=== PATIENT | male | born 1950 | race Caucasian/White ===

== ENCOUNTER 2016-07-24 11:36 | Emergency (ER) | payer MEDICARE, OTHER ==
--- NOTE | 2016-07-24 12:48 | ED Physician Documentation ---
PD HPI ABD PAIN - Stated complaint Stated Complaint: R SIDE PX - Chief complaint Chief Complaint: Abd Pain - History obtained from History obtained from: Patient - History of Present Illness Timing - onset: How many weeks ago (3) Timing - duration: Weeks (3) Timing - details: Gradual onset, Waxing and waning ([place] and had expected post op pain and then doing better. However started having cramping pain the past week or so. No fevers. Had not been using pain meds after first few days. No signs of infection at wounds. Has been having intermittent severe upper abd cramping pain, more after eating, and improved with belching. Has had firm bowel movements. The frequency of the cramping pains has increased the past 2 days and is today occurring every 10-15 minutes. He feels full stomach. Pain is mainly RUQ area.) Quality: Cramping, Sharp, Pain Location: RUQ, Epigastric Radiation: No: Chest, Upper back Improved by: Position (better sitting up). No: BM Worsened by: Eating, Position (worse lying) Associated symptoms: Nausea, Constipation. No: Fever, Vomiting, Diarrhea, Dysuria, Chest pain Similar symptoms before: Has not had sx before Recently seen: Surgery [place] of state) Review of Systems Ten Systems: 10 systems reviewed and negative Constitutional: denies: Fever, Chills Nose: denies: Rhinorrhea / runny nose, Congestion Throat: denies: Sore throat Cardiac: denies: Chest pain / pressure, Palpitations Respiratory: denies: Dyspnea, Cough GI: reports: Abdominal Pain, Nausea, Constipation. denies: Abdominal Swelling, Vomiting, Diarrhea : denies: Dysuria, Frequency Neurologic: denies: Generalized weakness, Near syncope PD PAST MEDICAL HISTORY - Past Medical History Cardiovascular: None Respiratory: None Neuro: None Endocrine/Autoimmune: None - Present Medications Home Medications: Ambulatory Orders Medication Instructions Recorded Confirmed Allopurinol 100 mg PO DAILY 07/24/16 07/24/16 Aspirin 81 mg PO DAILY 07/24/16 07/24/16 Atorvastatin [Lipitor] 4 tab PO DAILY 07/24/16 07/24/16 Carvedilol [Coreg] 0.5 tab PO DAILY 07/24/16 07/24/16 Docusate Sodium [Dss] 250 mg PO DAILY #30 capsule 07/24/16 Famotidine [Pepcid] 20 mg PO ONCE 07/24/16 07/24/16 Glipizide [Glucotrol] 10 mg PO DAILY 07/24/16 07/24/16 Hydrochlorothiazide 25 mg PO DAILY 07/24/16 07/24/16 Hydrocodone/Acetaminophen [[place] 1 each PO Q6H PRN #20 tablet 07/24/16 5-325 Tablet] Lisinopril 10 mg PO DAILY 07/24/16 07/24/16 Loratadine [Allergy Relief] 10 mg PO DAILY 07/24/16 07/24/16 Metformin HCl [Fortamet] 1,000 mg PO DAILY 07/24/16 07/24/16 Metoclopramide [Reglan] 10 mg PO TID #20 tablet 07/24/16 Nitroglycerin [Nitrostat] 0.4 mg SL Q5MIN PRN 07/24/16 07/24/16 [place]-3/Dha/Epa/Fish Oil [Fish Oil 1 cap PO DAILY 07/24/16 07/24/16 1,000 mg Softgel] SITagliptin [Januvia] 100 mg PO DAILY 07/24/16 07/24/16 Vitamin B Complex Vit C No.3 [B 1 cap PO DAILY 07/24/16 07/24/16 Complex with Vitamin C] - Allergies Allergies/Adverse Reactions: Allergies Allergy/AdvReac Type Severity Reaction Status Date / Time clopidogrel Allergy Rash Verified 07/24/16 11:47 - Family History Family history: reports: Non contributory PD ED PE NORMAL - Vitals Vital signs reviewed: Yes - General General: Alert and oriented X 3, Well developed/nourished, Other (appears okay until gets cramp/pain, then looks uncomfortable until burps. ) - HEENT HEENT: PERRL (nonicteric), Ears normal, Moist mucous membranes, Pharynx benign - Neck Neck: Supple, no meningeal sign, No adenopathy - Cardiac Cardiac: RRR, No murmur - Respiratory Respiratory: Clear bilaterally - Abdomen Abdomen: Normal bowel sounds, Soft, Non distended, No organomegaly, Other ( tender RUQ and epigastric area) - Male Male : Deferred - Rectal Rectal: Deferred - Back Back: No CVA TTP - Derm Derm: Normal color, Warm and dry - Extremities Extremities: Normal ROM s pain, No edema, No calf tenderness / cord - Neuro Neuro: Alert and oriented X 3, No motor deficit, Normal speech Results - Vitals Vitals: Vital Signs - 24 hr 07/24/16 07/24/16 07/24/16 11:43 15:08 16:38 Temperature 36.3 C L 36.0 C L Heart Rate 64 77 89 Respiratory 18 20 20 Rate Blood Pressure 120/76 128/80 124/74 O2 Saturation 100 100 99 Oxygen O2 Source Room air - Labs Labs: Laboratory Tests 07/24/16 07/24/16 07/24/16 13:10 13:10 14:12 WBC 7.9 RBC 5.40 Hgb 14.8 Hct 42.8 MCV 79.4 L MCH 27.3 MCHC 34.4 RDW 13.7 Plt Count 222 MPV 8.3 Neut # 4.3 Lymph # 2.5 [place] # 0.8 Eos # 0.3 Baso # 0.1 Absolute Nucleated RBC 0.01 Nucleated RBCs 0.1 Sodium 138 Potassium 4.2 Chloride 100 L Carbon Dioxide 30 Anion Gap 8.0 BUN 28 H Creatinine 1.4 H Estimated GFR (MDRD) 51 L Glucose 126 H Calcium 10.2 Total Bilirubin 1.1 H AST 22 ALT 19 Alkaline Phosphatase 72 Total Protein 7.8 Albumin 4.5 Globulin 3.3 Albumin/Globulin Ratio 1.4 Lipase 24 Urine Color YELLOW Urine Clarity CLEAR Urine pH 6.0 Ur Specific [place] 1.020 Urine Protein NEGATIVE Urine Glucose (UA) NEGATIVE Urine Ketones NEGATIVE Urine Occult Blood NEGATIVE Urine Nitrite NEGATIVE Urine Bilirubin NEGATIVE Urine Urobilinogen 0.2 (NORMAL) Ur Leukocyte Esterase SMALL H Urine RBC 0-5 Urine WBC >25 H Urine WBC Clumps PRESENT Ur Squamous Epith Cells FEW Squamous Urine Bacteria Rare Urine Casts 6-10 Hyaline Casts Urine Mucus Few Strands Ur Microscopic Review INDICATED Urine Culture Comments INDICATED PD MEDICAL DECISION MAKING - ED course Complexity details: reviewed results, re-evaluated patient (feeling improved with meds here. No obvious siginficant process on labs. CT read as normal. I would say there is generous stool in colon and stomach does appear very full, perhaps c/w delayed outlet. Consider constipation and poor gastric emptying leading to the fullness and cramping. Try clear liquids, stool softener, Reglan and see how does over 1-2 days. F/U with new PMD or with Surgery.), considered differential, d/w patient, d/w office 365 consultant (Reviewed history/exam/findings with Dr. Lees, electronic repair troubleshooter surgery. ) Departure - Departure Disposition: 01 Home, Self Care Clinical Impression: Postoperative abdominal pain Abdominal pain Qualifiers: Abdominal location: upper abdomen, unspecified Qualified Code(s): R10.10 - Upper abdominal pain, unspecified Condition: Stable Record reviewed to determine appropriate education?: Yes Instructions: ED Abdominal Pain Unkn Cause Follow-Up: Anatoly Ro MD [Primary Care Provider] - Paulo Rodriguez MD [Provider Admit Priv/Credential] - Prescriptions: Docusate Sodium [Dss] 250 mg PO DAILY #30 capsule Hydrocodone/Acetaminophen [[place] 5-325 Tablet] 1 each PO Q6H PRN #20 tablet PRN Reason: Pain Metoclopramide [Reglan] 10 mg PO TID #20 tablet Comments: Clear liquids diet for 1-2 days. Drink plenty of fluids. Docusate stool softener daily for 1-2 weeks. Reglan three times daily to improve stomach emptying (and is nausea medication too). Tylenol or Hydrocodone as needed for pains. Recheck with Dr. Ro or Surgical office in 2-3 days, call for appt. Discharge Date/Time: 07/24/16 16:41
[2016-07-24] MEDS ORDERED: KETOROLAC 30 MG/ML VIAL IVP STA (13:06)
[2016-07-24] MEDS ORDERED: MORPHINE 10 MG/ML VIAL IVP STA (13:06)
[2016-07-24] MEDS ORDERED: MAG HYDROX/AL HYDROX/SIMETH 30 ML UDC PO STA (13:06)
[2016-07-24] MEDS ORDERED: SODIUM CHLORIDE 0.9% 1,000 ML IV ONE (13:07)
[2016-07-24] MEDS ORDERED: KETOROLAC 30 MG/ML VIAL ONE (13:17)
[2016-07-24] MEDS ORDERED: MORPHINE 10 MG/ML VIAL ONE (13:17)
[2016-07-24] MEDS ORDERED: MAG HYDROX/AL HYDROX/SIMETH 30 ML UDC ONE (13:17)
[2016-07-24 13:19] LABS: BASOPHILS # (AUTO) 0.1 10^3/uL (0.0-0.1); BASOPHILS % (AUTO) 0.9 %; EOSINOPHILS # (AUTO) 0.3 10^3/uL (0.0-0.7); EOSINOPHILS % (AUTO) 3.3 %; HCT - HEMATOCRIT 42.8 % (42.0-52.0); HGB - HEMOGLOBIN 14.8 g/dL (14.0-18.0); LYMPHOCYTES # (AUTO) 2.5 10^3/uL (1.5-3.5); LYMPHOCYTES % (AUTO) 31.2 %; MEAN CORPUSCULAR HEMOGLOBIN 27.3 pg (27.0-31.0); MEAN CORPUSCULAR HGB CONC 34.4 g/dL (32.0-36.0); MEAN CORPUSCULAR VOLUME 79.4 fL (80.0-94.0); MEAN PLATELET VOLUME 8.3 fL (7.4-11.4); MONOCYTES # (AUTO) 0.8 10^3/uL (0.0-1.0); MONOCYTES % (AUTO) 9.7 %; NEUTROPHILS # (AUTO) 4.3 10^3/uL (1.5-6.6); NEUTROPHILS % (AUTO) 54.9 %; NUCLEATED RED BLOOD CELLS AUTO 0.1 /100WBC; RED CELL DISTRIBUTION WIDTH 13.7 % (12.0-15.0); UNCORRECTED WHITE BLOOD COUNT 7.9 x10^3/uL; WHITE BLOOD COUNT 7.9 x10^3/uL (4.8-10.8)
[2016-07-24 13:29] LABS: ALBUMIN/GLOBULIN RATIO 1.4 (1.0-2.2); BILIRUBIN,TOTAL 1.1 mg/dL (0.2-1.0); CALCIUM 10.2 mg/dL (8.5-10.3); CREATININE 1.4 mg/dL (0.6-1.2); POTASSIUM 4.2 mmol/L (3.5-5.0); TOTAL PROTEIN 7.8 g/dL (6.7-8.2)
[2016-07-24 14:46] LABS: UA w/ MICROSCOPIC CHARGE YES
[2016-07-24 14:48] LABS: BILIRUBIN,URINE NEGATIVE (NEGATIVE)
[2016-07-24] MEDS ORDERED: IOPAMIDOL-300 100 ML VIAL IVP ONE (14:50)
[2016-07-24 14:55] LABS: WBC,URINE >25 /HPF (0-3)
[2016-07-24 14:56] LABS: UR CULTURE IF IND INDICATED
[2016-07-24] MEDS ORDERED: HYDROmorphone 1 MG/ML SYRINGE IVP STA (14:58)
[2016-07-24] MEDS ORDERED: ONDANSETRON 4 MG/2 ML VIAL IVP STA (14:59)
[2016-07-24] MEDS ORDERED: HYDROmorphone 1 MG/ML SYRINGE ONE (15:02)
[2016-07-24] MEDS ORDERED: ONDANSETRON 4 MG/2 ML VIAL ONE (15:02)
--- NOTE | 2016-07-24 15:25 | CT Preliminary Report ---
Exam: CT Abdomen/Pelvis W/ IMPRESSION: 1. No radiographic explanation for this gentleman right upper quadrant symptoms. 2. 0.2 cm and 1.8 cm simple exophytic water density lesions off the pancreas consistent with pseudoc ysts. Unless these have been documented to be present previously outside studies and/or reports, dedi cated follow-up pancreatic CT scan should be considered in 6 months. 3. Left nephrolithiasis. 4. Mild right renal atrophy. 6. Colonic diverticulosis. 7. Moderate caliber non-entrapped left inguinal hernia with involvement of the colon. 8. Normal appendix. [facility] SITE ID: [id number]
--- NOTE | 2016-07-24 15:38 | CT Report ---
EXAM: CT ABDOMEN AND PELVIS EXAM DATE: 07/24/2016 02:50 PM. CLINICAL HISTORY: Cholecystectomy. Patient presents with right upper quadrant pain. COMPARISONS: None. TECHNIQUE: Routine helical CT imaging was performed through the abdomen and pelvis. IV contrast: 100 mL Isovue 300. Enteric contrast: Yes. Reconstructions: Coronal and sagittal. In accordance with CT protocol optimization, one or more of the following dose reduction techniques w ere utilized for this exam: automated exposure control, adjustment of mA and/or KV based on patient s ize, or use of iterative reconstructive technique. FINDINGS: Lung Bases: Unremarkable. Liver: Normal. No masses. Gallbladder/Bile Ducts: Cholecystectomy. No biliary duct dilatation. Spleen: Normal. Pancreas: 2 mm exophytic water density lesion along the undersurface mid body of the pancreas coronal image 28. 1.6 x 1.8 cm uniform water density exophytic lesion off the pancreatic tail, axial image 27, coronal image 28. Mild atrophy of the rest of the pancreas with uniform enhancement. No pancreatic duct dilat ation. No peripancreatic inflammatory changes. Adrenal Glands: Normal. Kidneys: Moderate amount of scarring involving the right renal cortex. Mild right renal atrophy. 2.1 cm cyst left kidney. No solid mass lesions nor hydronephrosis. 5 x 7 mm stone in the inferior left renal calyx. Both ureters are small without calcified stones. Peritoneal Cavity/Bowel: Diverticuli of the colon. No free fluid, free air or adenopathy. No masses o r acute inflammatory process. The appendix is well visualized and normal. Pelvic Organs: 8 x 4 cm left inguinal hernia involving a long segment of proximal colon. Hernia neck is 3.8 cm. No evidence of entrapment. The bladder and visualized pelvic organs are within normal limi ts. Vasculature: No aneurysms or other significant abnormality. Bones: Scoliosis. Other: None. IMPRESSION: 1. No radiographic explanation for this gentleman's right upper quadrant symptoms. 2. 0.2 cm and 1.8 cm simple exophytic water density lesions off the pancreas consistent with pseudoc ysts. Unless these have been documented to be present previously on outside studies and/or reports, d edicated follow-up pancreatic CT scan should be considered in 6 months. 3. Left nephrolithiasis. 4. Mild right renal atrophy. 6. Colonic diverticulosis. 7. Moderate caliber non-entrapped left inguinal hernia with involvement of the colon. 8. Normal appendix. [facility] Referring Provider Line: [phone] SITE ID: [id number]
[2016-07-24] MEDS ORDERED: METOCLOPRAMIDE 10 MG/2 ML VIAL IVP STA (15:57)
[2016-07-24] MEDS ORDERED: METOCLOPRAMIDE 10 MG/2 ML VIAL IVP ONE (16:07)
[2016-07-24 16:39] VITALS: BP 124/74
== END 2016-07-24 16:41 | disposition home or self-care (01) ==
LOC: ED 11:36
DX: R10.11 Right upper quadrant pain (principal); G89.18 Other acute postprocedural pain; Z79.82 Long term (current) use of aspirin
CPT/HCPCS: 36415; 74177; 80053; 81001; 83690; 85025; 87086; 96361; 96374; 96375; 99284; A9270; J1170; Q9967; 81003

== ENCOUNTER 2016-08-03 14:47 | Outpatient (CLI) | payer MEDICARE, OTHER ==
--- NOTE | 2016-08-03 16:49 | XRAY Report ---
THREE VIEW RIGHT KNEE: 08/03/2016 CLINICAL INDICATION: Intermittent right knee pain. AP, lateral, sunrise views of the right knee demonstrate no evidence of fracture or dislocation. No effusion is present. Vascular calcifications are incidentally noted. IMPRESSION: NORMAL RIGHT KNEE. JOB #: [id number] EXT JOB #:[id number]
== END 2016-08-03 14:48 | disposition home or self-care (01) ==
LOC: DI 14:47
PROVIDERS: ATTEND Family Medicine
DX: M25.561 Pain in right knee (principal)

== ENCOUNTER 2016-08-23 16:17 | Outpatient (CLI) | payer MEDICARE, OTHER ==
--- NOTE | 2016-08-24 09:15 | MRI Report ---
EXAM: RIGHT KNEE MRI WITHOUT CONTRAST EXAM DATE: 08/23/2016 05:28 PM. CLINICAL HISTORY: Knee pain for 2-1/2 months. COMPARISON: Radiograph 08/03/2016. TECHNIQUE: Multiplanar, multisequence T1-weighted and fluid-sensitive sequences of the knee without c ontrast. Other: None. FINDINGS: Cruciate Ligaments: The anterior and posterior cruciate ligaments appear intact. Medial Meniscus: Small far peripheral horizontal tear at the periphery of the posterior body with tin y inferiorly directed flap fragment deep to the posterior margin of the medial collateral ligament. Lateral Meniscus: Intact. No tear is identified. Collateral Ligaments: The medial and fibular collateral ligaments appear intact. Trace fluid within t he MCL bursa. Bones and Articular Surfaces: Mild superficial cartilage fissuring in the patellofemoral compartment. Mild cartilage thinning, irregularity and fissuring in the medial greater than lateral compartment. Subchondral edema at the periphery of the medial tibial plateau. Extensor Mechanism: The patellar tendon and quadriceps insertion appear intact. Miscellaneous: There is ill-defined fluid tracking along the deep aspect of the semimembranosus muscl e. This may represent recent leak or rupture of popliteal cyst. IMPRESSION: 1. Small far peripheral horizontal tear at the body of the medial meniscus with small inferiorly dire cted flap fragment. 2. Mild medial compartment osteoarthritis with subchondral edema at the periphery of the medial tibia l plateau. 3. Mild chondromalacia in the patellofemoral compartment. [facility] MUSCULOSKELETAL RADIOLOGY SECTION Referring Provider Line: [phone] SITE ID: [id number]
== END 2016-08-23 16:18 | disposition home or self-care (01) ==
LOC: DI 16:17
PROVIDERS: ATTEND Family Medicine
DX: S83.241A Other tear of medial meniscus, current injury, right knee, initial encounter (principal); M17.12 Unilateral primary osteoarthritis, left knee; M22.41 Chondromalacia patellae, right knee

== ENCOUNTER 2017-10-22 07:10 | Day surgery (SDC) | payer MEDICARE, OTHER ==
[~2017-10-22 07:10] MED LIST: BUPIVACAINE 0.5% PF 30 ML VIAL ONE
[2017-10-22] MEDS ORDERED: ceFAZolin 2 GM/50 ML 2 GM/50 ML BAG IV ONE ×2 (07:16→09:17)
[2017-10-22] MEDS ORDERED: LACTATED RINGERS 1,000 ML IV ONE ×3 (07:44→15:45)
--- NOTE | 2017-10-22 07:58 | ANESTHESIA ---
Pre-Anesthesia VS, & Labs - Diagnosis bilateral inguinal hernias - Procedure inguinal hernia repair, left Vital Signs: Temp Pulse Resp BP Pulse Ox 36.5 C 16 143/86 H 98 10/22/17 07:44 10/22/17 07:44 10/22/17 07:44 10/22/17 07:44 Height 5 ft 11 in Weight (kg) 89.7 kg Body Mass Index 25.8 - NPO >8 hours (except coffee at 6am) - Lab Results Other Lab Results: BG 239 Home Medications and Allergies Home Medications: Ambulatory Orders Medication Instructions Recorded Confirmed Allopurinol 100 mg PO DAILY 07/24/16 10/22/17 Aspirin 81 mg PO DAILY 07/24/16 10/22/17 Atorvastatin [Lipitor] 4 tab PO DAILY 07/24/16 10/22/17 Carvedilol [Coreg] 0.5 tab PO DAILY 07/24/16 10/22/17 Lisinopril 10 mg PO DAILY 07/24/16 10/22/17 Loratadine [Allergy Relief] 10 mg PO DAILY 07/24/16 10/22/17 Metformin HCl [Fortamet] 1,000 mg PO DAILY 07/24/16 10/22/17 Metoclopramide [Reglan] 10 mg PO TID #20 tablet 07/24/16 10/22/17 Nitroglycerin [Nitrostat] 0.4 mg SL Q5MIN PRN 07/24/16 10/22/17 [place]-3/Dha/Epa/Fish Oil [Fish Oil 1 cap PO DAILY 07/24/16 10/22/17 1,000 mg Softgel] SITagliptin [Januvia] 100 mg PO DAILY 07/24/16 10/22/17 Vitamin B Complex Vit C No.3 [B 1 cap PO DAILY 07/24/16 10/22/17 Complex with Vitamin C] hydroCHLOROthiazide 25 mg PO DAILY 07/24/16 10/22/17 [Hydrochlorothiazide] Allergies/Adverse Reactions: Allergies Allergy/AdvReac Type Severity Reaction Status Date / Time clopidogrel Allergy Rash Verified 10/22/17 07:55 Anes History & Medical History - Anesthetic History Anesthesia Complications: reports: Slow wake-up - Medical History Cardiovascular: reports: Coronary artery disease Pulmonary: reports: None Gastrointestinal: reports: GERD Urinary: reports: None Musculoskeletal: reports: Rheumatoid arthritis Endocrine/Autoimmune: reports: Type 2 diabetes Skin: reports: None Smoking Status: Never smoker - Surgical History General: Cholecystectomy Eyes Ears Nose Throat (EENT): Rhinoplasty Cardiothoracic: Coronary stent Exam General: Alert Dental: Partials Upper Mouth Opening: Greater than 4 Fingerbreadths Neck Mobility: Normal Mallampati classification: III Thyromental Distance: greater than 6 cm Respiratory: Lungs clear Cardiovascular: Regular rate Mental/Cognitive Status: Alert/Oriented X3 Cognitive Status: Within normal limits Plan Anesthesia Type: General Consent for Procedure(s) Verified and Reviewed: Yes Code Status: Attempt Resuscitation ASA classification: 3-Severe systemic disease Is this case an emergency?: No
[2017-10-22] MEDS: INSULIN REGULAR HUMAN 100 UNIT/1 ML 10 ML MDV ONE ×2 (08:22→10:47)
[2017-10-22] MEDS ORDERED: BUPIVACAINE 0.5% PF 30 ML VIAL INFIL ONE ×2 (09:04)
[2017-10-22] MEDS ORDERED: KETOROLAC 30 MG/ML VIAL IVP ONE (09:17)
[2017-10-22] MEDS ORDERED: ONDANSETRON 4 MG/2 ML VIAL IVP ONE (09:17)
[2017-10-22] MEDS ORDERED: GLYCOPYRROLATE 1 MG/5 ML VIAL IVP ONE (09:17)
[2017-10-22] MEDS ORDERED: ePHEDrine 50 MG/ML VIAL IVP ONE (09:17)
[2017-10-22] MEDS ORDERED: fentaNYL 100 MCG/2 ML VIAL IVP ONE (09:17)
[2017-10-22] MEDS ORDERED: LIDOCAINE-MPF 2% 5 ML VIAL IM ONE (09:17)
[2017-10-22] MEDS ORDERED: PROPOFOL 200 MG/20 ML VIAL IVP ONE (09:17)
--- NOTE | 2017-10-22 10:18 | OPERATIVE REPORT ---
Operative Report - General Procedure Date: 10/22/17 Planned Procedure: Left inguinal herniorrhaphy Pre-Op Diagnosis: Left inguinal hernia Procedure Performed: Left indirect sliding inguinal herniorrhaphy with mesh Post Op Diagnosis: Left indirect sliding inguinal hernia - Procedure Note Primary Surgeon: Paulo Rodriguez MD Anesthesia Provider: Paulo Begum MD Anesthesia Technique: General ET tube, Local (30 mL 1/2% Marcaine) IV Fluids (mL): 700 Estimated Blood Loss (mL): 10 Complications: None. - Other Other Information/Narrative: OPERATIVE DESCRIPTION/REPORT: After verbal and written informed consent was obtained detailing the risks of infection, bleeding requiring transfusion with its risks, nerve injury, and , and after I met with the patient confirming the surgery and the site of the surgery and after initialing the site of the surgery with a surgical marker , the patient was brought to the operative suite and placed supine on the operating table. Great care was taken to avoid pressure points to prevent pressure necrosis or nerve injury. Monitoring devices were applied along with TEDs and pneumatic compressive stockings (to prevent DVT). The patient received preoperative antibiotics for surgical prophylaxis. Paulo Begum MD sedated and anesthetized the patient for the entire procedure. The patient was prepped and draped in the usual sterile manner. With the patient draped my initials were clearly visible. A "time in" then confirmed that the patient was identified with 3 identifiers (name, date and medical record number), the history and physical was in the chart, the signed consent confirming the procedure was in the chart, the patient was in the correct position, the aforementioned prophylactic measures were in place or given, we had the correct personnel and equipment to complete the procedure and that anesthesia, surgery and nursing were given an opportunity to express any concerns. With the agreement of everyone in the room, we proceeded with the operation. A standard inguinal incision was made and dissection was carried down to the external oblique aponeurosis using a combination of Metzenbaum scissors and Bovie electrocautery. The external oblique aponeurosis was cleared of overlying adherent tissue, and the external ring was delineated. The external oblique was the incised with a scalpel and this incision was carried out to the external ring using Metzenbaum scissors. Having exposed the inguinal canal, the cord structures were from the canal using blunt dissection, and a Marie drain was placed around the cord structures at the level of the pubic tubercle. This [place] drain was then used to retract the cord structures as needed. Adherent cremasteric muscle was dissected free from the cord using Bovie electrocautery. The cord was then explored using a combination of sharp and blunt dissection, and the sac was found anteromedially to the cord structures. The sac was dissected free from the cord structures using a combination of blunt dissection and Bovie electrocautery. Once preperitoneal fat was encountered, the dissection stopped and the sac was high ligated with a 2-0 PDS, transected, the stump cauterized and allowed to retract back into the abdominal cavity and an extra-large Bard Perfix plug (Ref# [id number], Lot#[id number], use date 2022-07-22) inserted into the internal ring. The plug was secured to the internal ring by interrupted 2-0 PDS sutures. The Bard Perfix enlay patch was then placed on the floor of the inguinal canal and secured in place using interrupted 2-0 PDS sutures to the conjoined tendon superiorly, pubic tubercle medially, and shelving edge inferiorly. By reinforcing the floor with the enlay patch, a new internal ring was thus formed. The [place] drain was removed. The wound was then irrigated using sterile saline, and hemostasis was obtained using Bovie electrocautery. The incision in the external oblique was approximated using a 3-0 Vicryl in a running fashion , thus reforming the external ring. The fascia and skin was then injected with the 1/2% marcaine for terminal clerk pain control. The skin incision was approximated with 4-0 Monocryl in a subcuticular fashion. The skin was prepped with benzoin and steristrips were applied. At this point a time out was performed that confirmed that all the counts were correct, the procedure that was performed, the blood loss, the IV fluids administered, and the patients condition. A dressing was then applied. Gentle downward traction ensured that the testes were well seated in the scrotum. Having tolerated the procedure well , the patient was taken to short stay in good and stable condition. Dragon disclaimer: This document was created in part using voice recognition technology. Because of the inherent limitations of the system ([employer]'s [employer] user manual states that the licensee understands that speech recognition is a statistical process and that recognition errors are inherent in the process), occasional same sounding word substitutions and grammatical errors do occur and persist despite proofreading. Please read this document for context.
[2017-10-22] MEDS ORDERED: KETOROLAC 30 MG/ML VIAL ONE (11:15)
[2017-10-22] MEDS ORDERED: oxyCOD/ACETAMIN 5 MG/325 MG TABLET PO ONE (12:17)
[2017-10-22 17:04] VITALS: BP 143/68
== END 2017-10-22 07:11 | disposition home or self-care (01) ==
LOC: SDS 07:10
PROVIDERS: ATTEND Surgery
PROC: 0YU60JZ Supplement Left Inguinal Region with Synthetic Substitute, Open Approach (ICD-10-PCS; principal; 2017-10-22 08:30)
DX: K40.20 Bilateral inguinal hernia, without obstruction or gangrene, not specified as recurrent (principal); I25.10 Atherosclerotic heart disease of native coronary artery without angina pectoris; E11.9 Type 2 diabetes mellitus without complications; Z95.5 Presence of coronary angioplasty implant and graft; I10 Essential (primary) hypertension; I49.3 Ventricular premature depolarization
CPT/HCPCS: 49525; A9270; C1781; J0690; J1815; J7120

== ENCOUNTER 2019-03-27 10:02 | Outpatient (CLI) | payer MEDICARE, OTHER ==
[2019-03-27 18:24] LABS: CREATININE 1.4 mg/dL (0.6-1.2)
[2019-03-27 18:38] LABS: CREATININE,URINE 180.2 mg/dL; MICROALBUM/CREATININE RATIO,UR 28.3 ug/mg (<30.0); MICROALBUMIN,URINE 5.1 mg/dL (0-300.0)
[2019-03-27 19:30] LABS: HB2 TOTAL 14.1 g/dL; HEMOGLOBIN A1C 1.34 g/dL; HEMOGLOBIN A1C % 10.8 % (4.6-6.2)
== END 2019-03-27 10:03 | disposition home or self-care (01) ==
LOC: LAB.S 10:02
PROVIDERS: ATTEND Physician Assistant
DX: E11.9 Type 2 diabetes mellitus without complications (principal)
CPT/HCPCS: 36415; 80048; 82043; 82570; 83036

== ENCOUNTER 2019-04-03 11:09 | Outpatient (CLI) | payer MEDICARE, OTHER | END 2019-04-03 11:10 | disposition home or self-care (01) | LOC: LAB.S 11:09 | PROVIDERS: ATTEND Physician Assistant | DX: E11.9 Type 2 diabetes mellitus without complications (principal) | CPT/HCPCS: 36415; 80048; 82043; 82570; 83036 ==

== ENCOUNTER 2019-05-06 07:57 | Outpatient (CLI) | payer MEDICARE, OTHER ==
[2019-05-06 10:03] LABS: BASOPHILS # (AUTO) 0.1 10^3/uL (0.0-0.1); BASOPHILS % (AUTO) 0.8 %; EOSINOPHILS # (AUTO) 0.4 10^3/uL (0.0-0.7); EOSINOPHILS % (AUTO) 5.6 %; HGB - HEMOGLOBIN 13.7 g/dL (14.0-18.0); LYMPHOCYTES # (AUTO) 2.3 10^3/uL (1.5-3.5); LYMPHOCYTES % (AUTO) 35.6 %; MEAN CORPUSCULAR HGB CONC 32.5 g/dL (32.0-36.0); MEAN CORPUSCULAR VOLUME 83.1 fL (80.0-94.0); MEAN PLATELET VOLUME 10.1 fL (7.4-11.4); MONOCYTES # (AUTO) 0.6 10^3/uL (0.0-1.0); NEUTROPHILS # (AUTO) 3.1 10^3/uL (1.5-6.6); NEUTROPHILS % (AUTO) 47.8 %; PLT - PLATELET COUNT 269 10^3/uL (130-450); RED BLOOD COUNT 5.08 10^6/uL (4.70-6.10); RED CELL DISTRIBUTION WIDTH 13.2 % (12.0-15.0); WHITE BLOOD COUNT 6.4 x10^3/uL (4.8-10.8)
[2019-05-06 10:23] LABS: BUN - BLOOD UREA NITROGEN 17 mg/dL (6-20); CALCIUM 9.7 mg/dL (8.5-10.3); CARBON DIOXIDE - CO2 28 mmol/L (21-32); CHLORIDE 99 mmol/L (101-111); CHOL/HDL RATIO 4.8 (<5.0); CHOLESTEROL 145 mg/dL; CREATININE 1.1 mg/dL (0.6-1.2); GFR - MDRD 66 (>89); GLUCOSE 179 mg/dL (70-100); HDL CHOLESTEROL 30 mg/dL; LDL CHOLESTEROL,CALCULATED 78 mg/dL; LDL/HDL RATIO 2.6 (<3.6); SODIUM 137 mmol/L (135-145); VLDL CHOLESTEROL 37 mg/dL
[2019-05-06 10:28] LABS: HB2 TOTAL 13.8 g/dL; HEMOGLOBIN A1C 1.1 g/dL; HEMOGLOBIN A1C % 9.4 % (4.6-6.2)
[2019-05-06 17:45] LABS: CREATININE,URINE 149.7 mg/dL; MICROALBUM/CREATININE RATIO,UR 10.7 ug/mg (<30.0); MICROALBUMIN,URINE 1.6 mg/dL (0-300.0)
== END 2019-05-06 07:58 | disposition home or self-care (01) ==
LOC: LAB.S 07:57
PROVIDERS: ATTEND Physician Assistant
DX: I21.3 ST elevation (STEMI) myocardial infarction of unspecified site (principal); E11.9 Type 2 diabetes mellitus without complications
CPT/HCPCS: 36415; 80048; 80061; 82043; 82570; 83036; 83721; 85025

== ENCOUNTER 2019-08-05 08:45 | Outpatient (CLI) | payer MEDICARE, OTHER ==
[2019-08-05 15:40] LABS: HB2 TOTAL 14.2 g/dL; HEMOGLOBIN A1C % 8.6 % (4.6-6.2)
[2019-08-05 15:50] LABS: CREATININE,URINE 140.3 mg/dL; MICROALBUM/CREATININE RATIO,UR 6.4 ug/mg (<30.0); MICROALBUMIN,URINE 0.9 mg/dL (0-300.0)
== END 2019-08-05 08:46 | disposition home or self-care (01) ==
LOC: LAB.S 08:45
PROVIDERS: ATTEND Physician Assistant
DX: E11.9 Type 2 diabetes mellitus without complications (principal)
CPT/HCPCS: 36415; 82043; 82570; 83036

== ENCOUNTER 2019-11-10 09:55 | Outpatient (CLI) | payer MEDICARE, OTHER ==
[2019-11-10 15:20] LABS: CREATININE,URINE 208.7 mg/dL; MICROALBUM/CREATININE RATIO,UR 8.1 ug/mg (<30.0); MICROALBUMIN,URINE 1.7 mg/dL (0-300.0)
== END 2019-11-10 09:56 | disposition home or self-care (01) ==
LOC: LAB.S 09:55
PROVIDERS: ATTEND Physician Assistant
DX: E11.9 Type 2 diabetes mellitus without complications (principal)
CPT/HCPCS: 36415; 82043; 82570; 83036

== ENCOUNTER 2020-03-18 10:53 | Outpatient (CLI) | payer MEDICARE, OTHER ==
[2020-03-18 15:37] LABS: CREATININE,URINE 170.2 mg/dL; MICROALBUM/CREATININE RATIO,UR 9.4 ug/mg (<30.0); MICROALBUMIN,URINE 1.6 mg/dL (0-300.0)
[2020-03-18 18:41] LABS: HEMOGLOBIN A1c% 10.2 % (4.27-6.07)
== END 2020-03-18 10:54 | disposition home or self-care (01) ==
LOC: LAB.S 10:53
PROVIDERS: ATTEND Physician Assistant
DX: E11.9 Type 2 diabetes mellitus without complications (principal)
CPT/HCPCS: 36415; 82043; 82570; 83036

== ENCOUNTER 2020-03-30 08:42 | Outpatient (CLI) | payer MEDICARE, OTHER ==
[2020-03-30 14:59] LABS: CHOL/HDL RATIO 5.1 (<5.0); CHOLESTEROL 174 mg/dL; HDL CHOLESTEROL 34 mg/dL; LDL CHOLESTEROL,CALCULATED 96 mg/dL; LDL/HDL RATIO 2.8 (<3.6); VLDL CHOLESTEROL 44 mg/dL
== END 2020-03-30 08:43 | disposition home or self-care (01) ==
LOC: LAB.S 08:42
PROVIDERS: ATTEND Physician Assistant
DX: I10 Essential (primary) hypertension (principal); I25.10 Atherosclerotic heart disease of native coronary artery without angina pectoris; E78.5 Hyperlipidemia, unspecified; E11.9 Type 2 diabetes mellitus without complications
CPT/HCPCS: 36415; 80061; 83721

== ENCOUNTER 2020-04-08 08:55 | Outpatient (CLI) | payer MEDICARE, OTHER ==
[2020-04-08] MEDS ORDERED: AMINOPHYLLINE 500 MG/20 ML VIAL ONE (10:31)
[2020-04-08] MEDS ORDERED: REGADENOSON 0.4 MG/5 ML SYRINGE IVP ONE ×2 (10:31→12:21)
--- NOTE | 2020-04-08 12:39 | CARDIAC PROCEDURE NOTE ---
DATE OF SERVICE: 04/08/2020 Physician: Yolanda Tejeda MD, [facility] INDICATION: Chest pain, hypertension, DM, hyperlipidemia. CARDIAC RISK FACTORS: Hypertension, diabetes, hyperlipidemia, male gender. The patient also has known CAD with stents placed in 2012 and in 2013. DESCRIPTION OF PROCEDURE: After signing informed consent, the patient underwent a Lexiscan pharmaceutical stress test with nuclear myocardial perfusion imaging. RESTING HEART RATE: 70. PEAK HEART RATE: 92. RESTING BLOOD PRESSURE: 170/106. PEAK BLOOD PRESSURE: 171/92. Lexiscan was infused per protocol. The patient had brief "indigestion", shortness of breath and flushed feeling, which all lasted less than 1 minute. He had no "stabbing chest pain". Oxygen saturation was 94-98% on room air throughout the test. RESTING EKG: Normal sinus rhythm, first-degree AV block, early R/S transition, occasional PVCs, 2 episodes of ventricular couplets are seen at rest. EKG AT PEAK: No new ST segment depressions or T-wave changes develop. Throughout the test, there were frequent PVCs, several runs of ventricular bigeminy and interpolated PVCs. SUMMARY: 1. Abnormal resting EKG and frequent PVCs. 2. Frequent ventricular ectopy also seen throughout the stress test. 3. No ischemic ST segment or T-wave changes develop with pharmaceutical stress, by EKG criteria. 4. Nuclear images reported separately and showed: Normal tracer uptake, no areas to suggest ischemia or scar. However, there is mild diffuse LV hypokinesis and septal dyskinesis, and LVEF is mildly depressed. IMPRESSION: 1. Normal stress test with respect to ischemia. 2. Abnormal findings of depressed LV ejection fraction. 3. Frequent ventricular ectopy. 4. Poorly controlled hypertension. RECOMMENDATIONS: 1. Assess electrolytes, magnesium, etc. regarding the frequent PVCs. 2. Assure blood pressure is better controlled. 3. Echo, if not recently done, to assess LVEF and valves. 4. Cardiology referral or follow-up needed, if established. cc: Ramona Thomas PA-C TD: 04/08/2020 11:44 [place]
--- NOTE | 2020-04-08 16:17 | Nuclear Medicine Report ---
PROCEDURE: Rest and pharmacological stress myocardial perfusion SPECT with gated imaging and ejection fraction INDICATIONS: CHEST PAIN, HTN, CAD RADIOPHARMACEUTICAL: 16.4 mCi Tc-99m Myoview IV at rest and 50.25 mCi Tc-99m Myoview IV at peak exer cise. [id number] was performed. TECHNIQUE: Radiopharmaceutical was injected at peak stress test, and also at rest. SPECT images wer e obtained. SPECT myocardial perfusion images were displayed in short axis, horizontal long axis, an d vertical long axis views. Gated images were reviewed using [employer] software. COMPARISON: None available. FINDINGS: Raw data: There is good myocardial labeling by radiotracer. No significant motion artifacts. Lung- to-heart ratio is 0.31 (normal is less than 0.38 for tetrafosmin tracer). Bowel activity near the inf erior wall of the left ventricle in the upper abdomen. Left ventricle function: Gated images demonstrate normal left ventricle wall thickening. No segment al wall motion abnormality. No transient ischemic dilation; TID is 1.22 (normal less than 1.3). The left ventricle resting end-diastolic volume is normal. There is mild diffuse hypokinesia of the lef t ventricle. Septum is dyskinetic. Left ventricle stress ejection fraction is 39%; normal values are above 45%. Myocardial perfusion: There is normal distribution of activity in the left and right ventricular quincy cardium. No fixed or reversible perfusion defects. IMPRESSION: 1. Normal myocardial perfusion images. No perfusion defect to suggest myocardial ischemia or infarct. 2. Normal left ventricular volume. There is mild diffuse hypokinesia and septal dyskinesia of the lef t ventricle. The left ventricular ejection fraction is mildly decreased. 3. Please correlate with stress EKG findings. PQRS ATTESTATIONS: Measure 322 - Is this imaging test primarily performed on a low-risk surgery patient for preoperative evaluation within 30 days preceding their low-risk non-cardiac surgery? Low-risk surgery is defined as cardiac or myocardial infarction less than 1%, including (but not limited to) endoscopic pr ocedures, superficial procedures, cataract surgery, and excisional breast surgery: Answer: No Measure 323 - Is this imaging test performed primarily for the monitoring of an asymptomatic patient who had percutaneous coronary intervention on the visit date or within 2 years of the visit date? An swer: No Measure 324 - Is this imaging test performed primarily for the initial detection and risk assessment on an asymptomatic, low coronary heart disease patient? Low CHD risk definition = clinicians should consider the maximum number of available patient factors used to estimate risk based on [place] (A TP III criteria), typically age, gender, diabetes, smoking status, and use of blood pressure medicati on, and integrate age appropriate estimates for missing elements, such as LDL or standard blood press ure. Answer: No Reviewed by: Grisel Oliveira MD on 04/08/2020 4:15 PM PST Approved by: Grisel Oliveira MD on 04/08/2020 4:15 PM PST Station ID: [id number]
== END 2020-04-08 08:56 | disposition home or self-care (01) ==
LOC: DI 08:55
PROVIDERS: ATTEND Physician Assistant
DX: R07.89 Other chest pain (principal); I10 Essential (primary) hypertension; I25.10 Atherosclerotic heart disease of native coronary artery without angina pectoris; E11.9 Type 2 diabetes mellitus without complications; I49.3 Ventricular premature depolarization
CPT/HCPCS: 78452; 93016; 93017; 93018; A9500; J2785

== ENCOUNTER 2020-11-14 09:01 | Outpatient (CLI) | payer MEDICARE, OTHER ==
[2020-11-14 15:08] LABS: CALCIUM 9.6 mg/dL (8.5-10.3); CREATININE 1.2 mg/dL (0.6-1.2); POTASSIUM 4.2 mmol/L (3.5-5.0)
[2020-11-14 15:20] LABS: CREATININE,URINE 104.8 mg/dL; MICROALBUM/CREATININE RATIO,UR 15.3 ug/mg (<30.0); MICROALBUMIN,URINE 1.6 mg/dL (0-300.0)
[2020-11-14 20:43] LABS: ESTIMATED AVERAGE GLUCOSE 246 mg/dL (70-100); HEMOGLOBIN A1c% 10.2 % (4.27-6.07)
== END 2020-11-14 09:02 | disposition home or self-care (01) ==
LOC: LAB.S 09:01
PROVIDERS: ATTEND Internal Medicine
DX: I10 Essential (primary) hypertension (principal); E78.5 Hyperlipidemia, unspecified; I25.10 Atherosclerotic heart disease of native coronary artery without angina pectoris; E11.9 Type 2 diabetes mellitus without complications
CPT/HCPCS: 36415; 80048; 82043; 82570; 83036

== ENCOUNTER 2021-02-28 09:51 | Outpatient (CLI) | payer MEDICARE, OTHER ==
[2021-02-28 15:19] LABS: BUN - BLOOD UREA NITROGEN 19 mg/dL (6-20); CALCIUM 9.8 mg/dL (8.5-10.3); CARBON DIOXIDE - CO2 30 mmol/L (21-32); CHLORIDE 99 mmol/L (101-111); CHOL/HDL RATIO 5.1 (<5.0); CHOLESTEROL 178 mg/dL; CREATININE 1.4 mg/dL (0.6-1.2); GFR - MDRD 50 (>89); GLUCOSE 191 mg/dL (70-100); HDL CHOLESTEROL 35 mg/dL; LDL CHOLESTEROL,CALCULATED 111 mg/dL; LDL/HDL RATIO 3.2 (<3.6); POTASSIUM 4.1 mmol/L (3.5-5.0); SODIUM 139 mmol/L (135-145); TRIGLYCERIDES 161 mg/dL; VLDL CHOLESTEROL 32 mg/dL
[2021-02-28 18:45] LABS: ESTIMATED AVERAGE GLUCOSE 203 mg/dL (70-100); HEMOGLOBIN A1c% 8.7 % (4.27-6.07)
== END 2021-02-28 09:52 | disposition home or self-care (01) ==
LOC: LAB.S 09:51
PROVIDERS: ATTEND Nurse Practitioner
DX: E11.65 Type 2 diabetes mellitus with hyperglycemia (principal)
CPT/HCPCS: 36415; 80048; 80061; 83036; 83721

== ENCOUNTER 2021-04-25 09:09 | Outpatient (CLI) | payer MEDICARE, OTHER ==
[2021-04-25 15:44] LABS: CALCIUM 10.1 mg/dL (8.5-10.3); CREATININE 1.6 mg/dL (0.6-1.2); POTASSIUM 3.8 mmol/L (3.5-5.0)
== END 2021-04-25 09:10 | disposition home or self-care (01) ==
LOC: LAB.S 09:09
PROVIDERS: ATTEND Nurse Practitioner
DX: E11.65 Type 2 diabetes mellitus with hyperglycemia (principal)
CPT/HCPCS: 36415; 80048

== ENCOUNTER 2021-06-05 07:30 | Outpatient (CLI) | payer MEDICARE, OTHER ==
[2021-06-05 19:16] LABS: ESTIMATED AVERAGE GLUCOSE 217 mg/dL (70-100); HEMOGLOBIN A1c% 9.2 % (4.27-6.07)
== END 2021-06-05 07:31 | disposition home or self-care (01) ==
LOC: LAB.S 07:30
PROVIDERS: ATTEND Nurse Practitioner
DX: E11.65 Type 2 diabetes mellitus with hyperglycemia (principal)
CPT/HCPCS: 36415; 83036

== ENCOUNTER 2021-09-22 09:53 | Outpatient (CLI) | payer MEDICARE, OTHER ==
[2021-09-22 15:15] LABS: CALCIUM 10.1 mg/dL (8.5-10.3); CREATININE 1.3 mg/dL (0.6-1.2)
[2021-09-22 21:23] LABS: ESTIMATED AVERAGE GLUCOSE 200 mg/dL (70-100); HEMOGLOBIN A1c% 8.6 % (4.27-6.07)
== END 2021-09-22 09:54 | disposition home or self-care (01) ==
LOC: LAB.S 09:53
PROVIDERS: ATTEND Nurse Practitioner
DX: E11.65 Type 2 diabetes mellitus with hyperglycemia (principal)
CPT/HCPCS: 36415; 80048; 83036

== ENCOUNTER 2022-01-22 09:09 | Outpatient (CLI) | payer MEDICARE, OTHER ==
[2022-01-22 15:16] LABS: CALCIUM 10.1 mg/dL (8.5-10.3); CREATININE 1.6 mg/dL (0.6-1.2)
[2022-01-22 20:57] LABS: ESTIMATED AVERAGE GLUCOSE 226 mg/dL (70-100); HEMOGLOBIN A1c% 9.5 % (4.27-6.07)
== END 2022-01-22 09:10 | disposition home or self-care (01) ==
LOC: LAB.S 09:09
PROVIDERS: ATTEND Nurse Practitioner
DX: E11.65 Type 2 diabetes mellitus with hyperglycemia (principal)
CPT/HCPCS: 36415; 80048; 83036

== ENCOUNTER 2022-04-30 09:46 | Outpatient (CLI) | payer MEDICARE, OTHER ==
[2022-04-30 22:08] LABS: ESTIMATED AVERAGE GLUCOSE 194 mg/dL (70-100); HEMOGLOBIN A1c% 8.4 % (4.27-6.07)
== END 2022-04-30 09:47 | disposition home or self-care (01) ==
LOC: LAB.S 09:46
PROVIDERS: ATTEND Nurse Practitioner
DX: E11.65 Type 2 diabetes mellitus with hyperglycemia (principal)
CPT/HCPCS: 36415; 83036

== ENCOUNTER 2022-08-27 11:45 | Outpatient (CLI) | payer MEDICARE, OTHER ==
[2022-08-27 18:30] LABS: BASOPHILS # (AUTO) 0.1 10^3/uL (0.0-0.1); BASOPHILS % (AUTO) 1.1 %; EOSINOPHILS # (AUTO) 0.1 10^3/uL (0.0-0.7); EOSINOPHILS % (AUTO) 2.1 %; HCT - HEMATOCRIT 44.2 % (42.0-52.0); HGB - HEMOGLOBIN 14.1 g/dL (14.0-18.0); LYMPHOCYTES # (AUTO) 1.6 10^3/uL (1.5-3.5); LYMPHOCYTES % (AUTO) 29.9 %; MEAN CORPUSCULAR HEMOGLOBIN 26.5 pg (27.0-31.0); MEAN CORPUSCULAR HGB CONC 31.9 g/dL (32.0-36.0); MEAN CORPUSCULAR VOLUME 83.1 fL (80.0-94.0); MEAN PLATELET VOLUME 10.1 fL (7.4-11.4); MONOCYTES # (AUTO) 0.6 10^3/uL (0.0-1.0); MONOCYTES % (AUTO) 11.5 %; NEUTROPHILS # (AUTO) 2.9 10^3/uL (1.5-6.6); PLT - PLATELET COUNT 248 10^3/uL (130-450); RED BLOOD COUNT 5.32 10^6/uL (4.70-6.10); WHITE BLOOD COUNT 5.2 x10^3/uL (4.8-10.8)
[2022-08-27 18:45] LABS: ALBUMIN 3.9 g/dL (3.2-5.5); ALBUMIN/GLOBULIN RATIO 1.2 (1.0-2.2); ALKALINE PHOSPHATASE 73 IU/L (42-121); ALT ALANINE AMINOTRANSFERASE 15 IU/L (10-60); AST ASPARTATE AMINOTRANSFERASE 18 IU/L (10-42); BILIRUBIN,TOTAL 0.8 mg/dL (0.2-1.0); BUN - BLOOD UREA NITROGEN 26 mg/dL (6-20); CALCIUM 9.5 mg/dL (8.5-10.3); CARBON DIOXIDE - CO2 28 mmol/L (21-32); CHLORIDE 102 mmol/L (101-111); CHOL/HDL RATIO 4.9 (<5.0); CHOLESTEROL 200 mg/dL; CREATININE 1.4 mg/dL (0.6-1.2); GFR - MDRD 50 (>89); GLUCOSE 173 mg/dL (70-100); HDL CHOLESTEROL 41 mg/dL; LDL CHOLESTEROL,CALCULATED 133 mg/dL; LDL/HDL RATIO 3.2 (<3.6); POTASSIUM 4.1 mmol/L (3.5-5.0); SODIUM 137 mmol/L (135-145); TOTAL PROTEIN 7.2 g/dL (6.7-8.2); TRIGLYCERIDES 130 mg/dL; VLDL CHOLESTEROL 26 mg/dL
[2022-08-27 21:54] LABS: ESTIMATED AVERAGE GLUCOSE 206 mg/dL (70-100); HEMOGLOBIN A1c% 8.8 % (4.27-6.07)
== END 2022-08-27 12:00 | disposition home or self-care (01) ==
LOC: LAB.N 11:45
PROVIDERS: ATTEND Physician Assistant Medical
DX: I10 Essential (primary) hypertension (principal); E11.9 Type 2 diabetes mellitus without complications; E78.5 Hyperlipidemia, unspecified
CPT/HCPCS: 36415; 80053; 80061; 83036; 83721; 84443; 85025

== ENCOUNTER 2022-10-29 11:06 | Emergency (ER) | payer MEDICARE, OTHER ==
[2022-10-29 11:53] VITALS: BP 112/60; O2SAT 97
--- NOTE | 2022-10-29 12:07 | ED Physician Documentation ---
History of Present Illness - Stated complaint Stated Complaint: RT LEG SWOLLEN - Chief complaint Chief Complaint: Trauma Ext - History obtained from History obtained from: Patient - History of Present Illness Timing: How many days ago (5) Pain level max: 5 Pain level now: 5 - Additonal information Additional information: Patient is a 72-year-old male who stepped on a nail 5 days ago with his right foot. He states that it was cleansed and bandaged at the walk-in clinic. He states since that time he has had increasing pain and swelling. He is diabetic.. He denies any fevers to me. He states that the swelling was larger this morning but has decreased since he arrived in the emergency department. He denies any allergies to antibiotics. Nothing makes it better or worse. Review of Systems Constitutional: denies: Fever, Chills GI: denies: Vomiting, Diarrhea Skin: denies: Rash Musculoskeletal: denies: Neck pain, Back pain Neurologic: denies: Headache PD PAST MEDICAL HISTORY - Past Medical History Cardiovascular: Coronary artery disease Respiratory: None Endocrine/Autoimmune: Type 2 diabetes GI: GERD : None HEENT: None Psych: None Musculoskeletal: Rheumatoid arthritis Derm: None - Past Surgical History General: Cholecystectomy Cardiovascular: Coronary stent HEENT: Rhinoplasty - Present Medications Home Medications: Ambulatory Orders Medication Instructions Recorded Confirmed Aspirin 81 mg PO DAILY 07/24/16 10/29/22 Atorvastatin [Lipitor] 4 tab PO DAILY 07/24/16 10/29/22 Loratadine [Allergy Relief] 10 mg PO DAILY 07/24/16 10/29/22 Metformin HCl [Fortamet] 1,000 mg PO DAILY 07/24/16 10/29/22 allopurinoL [Allopurinol] 100 mg PO DAILY 07/24/16 10/29/22 carvediloL [Coreg] 0.5 tab PO DAILY 07/24/16 10/29/22 hydroCHLOROthiazide 25 mg PO DAILY 07/24/16 10/29/22 [Hydrochlorothiazide] lisinopriL [Lisinopril] 10 mg PO DAILY 07/24/16 10/29/22 Semaglutide [Ozempic] 1 mg SUBQ Q7D 03/27/19 10/29/22 Ciprofloxacin HCl [Cipro] 500 mg PO BID #20 tablet 10/29/22 clindamycin HCL [Cleocin HCl] 300 mg PO Q6H #40 cap 10/29/22 - Allergies Allergies/Adverse Reactions: Allergies Allergy/AdvReac Type Severity Reaction Status Date / Time clopidogrel Allergy Rash Verified 10/29/22 11:37 - Social History Does the pt smoke?: No Smoking Status: Never smoker Does the pt drink ETOH?: Yes Does the pt have substance abuse?: No - Immunizations Immunizations are current?: Yes - POLST Patient has POLST: No PD ED PE NORMAL - Vitals Vital signs reviewed: Yes - General General: Alert and oriented X 3, No acute distress - HEENT HEENT: Moist mucous membranes - Neck Neck: Supple, no meningeal sign - Derm Derm: Warm and dry - Extremities Extremities: Other (R foot plantar puncture wound - swelling, erythema to the plantar aspect. no lymphangitis. no streaking. no drainage.) - Neuro Neuro: Alert and oriented X 3 - Psych Psych: Normal mood, Normal affect Results - Vitals Vitals: Vital Signs - 24 hr 10/29/22 11:41 Temperature 37.0 C Heart Rate 52 L Respiratory 17 Rate Blood Pressure 112/60 O2 Saturation 97 Oxygen O2 Source Room air PD Medical Decision Making - ED course Complexity details: considered differential, d/w patient ED course: Patient with mild cellulitis to the right foot after a plantar puncture wound through a shoe. Tetanus is up-to-date. There is no drainage, so no cultures obtained. We will place him on clindamycin and ciprofloxacin. Given a dose of Rocephin here. No evidence of osteomyelitis. He states that the nail came out in 1 piece, no evidence of retained foreign body. Patient counseled regarding signs and symptoms for which I believe and urgent re-evaluation would be necessary. Patient with good understanding of and agreement to plan and is comfortable going home at this time This document was made in part using voice recognition software. While efforts are made to proofread this document, sound alike and grammatical errors may occur. Departure - Departure Disposition: 01 Home, Self Care Clinical Impression: Cellulitis Qualifiers: Site of cellulitis: extremity Site of cellulitis of extremity: lower extremity Laterality: right Qualified Code(s): L03.115 - Cellulitis of right lower limb Puncture wound of plantar aspect of foot Qualifiers: Encounter type: initial encounter Laterality: right Qualified Code(s): S91.331A - Puncture wound without foreign body, right foot, initial encounter Condition: Good Instructions: ED Infec Skin Cellulitis, ED Wound Puncture General Follow-Up: your,doctor in 3 days for wound check [Other] Prescriptions: Ciprofloxacin HCl [Cipro] 500 mg PO BID #20 tablet clindamycin HCL [Cleocin HCl] 300 mg PO Q6H #40 cap Comments: Your prescriptions were sent to [facility] in [place]. Please follow-up with your doctor for further care. Please return if you worsen. It is importantly have your wound rechecked within approximately 3 days. This can be done either at the walk-in clinic, here or with your doctor. Please return sooner for fevers, increased swelling, redness or other changes. You should notice improvement within 24-36 hours. Forms: PCP List Discharge Date/Time: 10/29/22 13:29
[2022-10-29] MEDS ORDERED: CIPROFLOXACIN 250 MG TABLET PO STA (12:22)
[2022-10-29] MEDS ORDERED: LIDOCAINE 1% 2 ML VIAL MC ONE (12:22)
[2022-10-29] MEDS ORDERED: cefTRIAXone 1 GM VIAL IM STA (12:22)
== END 2022-10-29 13:29 | disposition home or self-care (01) ==
LOC: ED 11:06
DX: S91.331A Puncture wound without foreign body, right foot, initial encounter (principal); L03.115 Cellulitis of right lower limb; W22.8XXA Striking against or struck by other objects, initial encounter; E11.9 Type 2 diabetes mellitus without complications; I25.10 Atherosclerotic heart disease of native coronary artery without angina pectoris; Z79.899 Other long term (current) drug therapy; Z79.82 Long term (current) use of aspirin
CPT/HCPCS: 96372; 99283; A9270

== ENCOUNTER 2022-10-31 14:16 | Emergency (ER) | payer MEDICARE, OTHER ==
--- NOTE | 2022-10-31 14:41 | ED Physician Documentation ---
PD HPI LOWER EXT INJURY - Stated complaint Stated Complaint: RT FOOT PX - Chief complaint Chief Complaint: Ext Problem - History obtained from History obtained from: Patient - History of Present Illness PD HPI LOW EXT INJURY LOCATION: Right, Foot (The patient stepped on a nail about a week ago and subsequently developed redness and swelling to the dorsum of the foot as well as plantar. Seen here in the ER 3 days ago and prescribed Cipro and clindamycin. He states no improvement. No systemic symptoms.) Type of injury: Puncture wound Timing - onset: How many weeks ago (1) Timing - details: Gradual onset, Still present (he states has not improved with the antibiotics.) Worsened by: Palpating Associated symptoms: Swelling, Discolored. No: Weakness, Numbness Contributing factors: No: Anticoagulated Similar symptoms before: Has not had sx before Recently seen: Emergency Dept (few days ago and Rx Cipro and Clindamycin for apparent infection of foot from plantar wound.) Review of Systems Constitutional: denies: Fever, Chills Neurologic: denies: Focal weakness, Numbness PD PAST MEDICAL HISTORY - Past Medical History Cardiovascular: Coronary artery disease Respiratory: None Endocrine/Autoimmune: Type 2 diabetes GI: GERD : None HEENT: None Psych: None Musculoskeletal: Rheumatoid arthritis Derm: None - Past Surgical History General: Cholecystectomy Cardiovascular: Coronary stent HEENT: Rhinoplasty - Present Medications Home Medications: Ambulatory Orders Medication Instructions Recorded Confirmed Aspirin 81 mg PO DAILY 07/24/16 10/29/22 Atorvastatin [Lipitor] 4 tab PO DAILY 07/24/16 10/29/22 Loratadine [Allergy Relief] 10 mg PO DAILY 07/24/16 10/29/22 Metformin HCl [Fortamet] 1,000 mg PO DAILY 07/24/16 10/29/22 allopurinoL [Allopurinol] 100 mg PO DAILY 07/24/16 10/29/22 carvediloL [Coreg] 0.5 tab PO DAILY 07/24/16 10/29/22 hydroCHLOROthiazide 25 mg PO DAILY 07/24/16 10/29/22 [Hydrochlorothiazide] lisinopriL [Lisinopril] 10 mg PO DAILY 07/24/16 10/29/22 Semaglutide [Ozempic] 1 mg SUBQ Q7D 03/27/19 10/29/22 Ciprofloxacin HCl [Cipro] 500 mg PO BID #20 tablet 10/29/22 clindamycin HCL [Cleocin HCl] 300 mg PO Q6H #40 cap 10/29/22 HYDROcod/ACETAM 5/325 [[place] 5/325] 1 ea PO Q6H PRN #18 tablet 10/31/22 Naproxen 500 mg PO BID #20 tab 10/31/22 cephALEXin [Keflex] 500 mg PO QID #20 cap 10/31/22 - Allergies Allergies/Adverse Reactions: Allergies Allergy/AdvReac Type Severity Reaction Status Date / Time clopidogrel Allergy Rash Verified 10/31/22 14:36 - Social History Does the pt smoke?: No Smoking Status: Never smoker Does the pt drink ETOH?: Yes Does the pt have substance abuse?: No - Immunizations Immunizations are current?: Yes - POLST Patient has POLST: No PD ED PE NORMAL - Vitals Vital signs reviewed: Yes - General General: Alert and oriented X 3, Well developed/nourished, Other (appears consideerable pain. No calf tenderness. NO spread of redness above foot. Normal color and cap refill in toes. ) - Derm Derm: Normal color (generally normal color. Has marked redness and tenderness dorsum of foot on right. No pain/tenderness/swelling proximal to foot. Plantar aspect without redness and only mild tender. Puncture lac noted without draiange. ), Warm and dry - Neuro Neuro: Alert and oriented X 3, No motor deficit, No sensory deficit Results - Vitals Vitals: Vital Signs - 24 hr 10/31/22 15:45 Heart Rate 76 Respiratory 16 Rate Blood Pressure 145/54 H O2 Saturation 97 Oxygen O2 Source Room air - Rads (name of study) right foot Relevant Findings:: Prelim report reviewed, EMP independent interpretation of test (no air nor obvious fluid. no FB nor fracture. ) PD Medical Decision Making - ED course Complexity details: reviewed old records (recent ED visit.), considered differential (very red and painful/tender dorsum of foot, not on plantar where injury was. No improvement with current abx, so can change it a bit (stop clinda and add Keflex). But also to add NSAIDs for consideration of gout like process with/without infection. Add pain meds too.), d/w patient Departure - Departure Disposition: 01 Home, Self Care Clinical Impression: Foot infection, Foot pain, right Condition: Stable Record reviewed to determine appropriate education?: Yes Prescriptions: cephALEXin [Keflex] 500 mg PO QID #20 cap Naproxen 500 mg PO BID #20 tab HYDROcod/ACETAM 5/325 [[place] 5/325] 1 ea PO Q6H PRN #18 tablet PRN Reason: Pain Comments: Your x-ray does not show any foreign bodies nor obvious bone abnormality. Presumption is the antibiotics you are on just are not hitting the germs as targeted as we would like. We can swap out one of the antibiotics. I would have you continue the Cipro but hold the clindamycin and instead take cephalexin. This will target different selection of germs that might be causing your infection. There is likely some inflammation in through the foot as well so adding an anti- inflammatory can be beneficial. I wrote for naproxen 500 mg twice daily with food. To that add Tylenol every 4-6 hours if needed for pain or hydrocodone/acetaminophen if needed for worse pain. I sent your prescriptions to [facility] in [place]. Use your crutches for less to no weightbearing for the next few days. I would suggest doing some warm soaks of the foot 2-3 times daily to help loosen up any germs that might be in the wound and allow better drainage. Recheck if not improving well over the next few days and return if worse. I am prescribing a short course of narcotic pain medication for you. These are potentially dangerous and addictive medications that should be used carefully. These medications may constipate you. Take an [id number] stool softener such as docusate twice daily with plenty of water while taking these medications. If you go 24 hours without a bowel movement, take [id number] MiraLAX, per package instructions. Do not drink or drive while taking these medications. If you received narcotic or sedating medications while in the emergency department do not drive for 24 hours. Store this medication in a safe, secure place and out of reach of children. It is a violation of federal law to give or sell this medication to another person or to use in a manner other than prescribed. The ED will not refill narcotic prescriptions, including prescriptions lost or stolen. You can dispose of unwanted medications at the [facility]'s office or at several pharmacies such as [facility]. Forms: PCP List Discharge Date/Time: 10/31/22 15:53
[2022-10-31] MEDS ORDERED: HYDROmorphone 1 MG/ML CARPUJECT IM STA (14:53)
[2022-10-31] MEDS ORDERED: IBUPROFEN 600 MG TABLET PO STA (14:53)
[2022-10-31] MEDS ORDERED: cephALEXin 250 MG CAPSULE PO STA (14:53)
--- NOTE | 2022-10-31 15:36 | XRAY Report ---
PROCEDURE: Foot 3 View RT INDICATIONS: persistent foot swelling/redness. TECHNIQUE: 3 views of the foot were acquired. COMPARISON: None. FINDINGS: Bones: No fractures or dislocations. Osteoarthritic changes are noted throughout right foot. Well-de fined plantar and dorsal calcaneal enthesophytes are seen. No suspicious bony lesions. Soft tissues: No suspicious soft tissue calcifications or masses. IMPRESSION: No acute bony abnormality. Right foot osteoarthritis. No radiographic evidence of osteomyelitis. Reviewed by: Yayo Price MD on 10/31/2022 3:35 PM PDT Approved by: Yayo Price MD on 10/31/2022 3:35 PM PDT Station ID: [id number]
[2022-10-31 15:50] VITALS: BP 145/54; O2SAT 97
== END 2022-10-31 15:53 | disposition home or self-care (01) ==
LOC: ED 14:16
DX: S91.331A Puncture wound without foreign body, right foot, initial encounter (principal); L03.115 Cellulitis of right lower limb; W22.8XXA Striking against or struck by other objects, initial encounter; E11.9 Type 2 diabetes mellitus without complications; Z79.84 Long term (current) use of oral hypoglycemic drugs
CPT/HCPCS: 73630; 96372; 99283; 99284; A9270; J1170

== ENCOUNTER 2022-11-03 11:26 | Inpatient (IN) | payer MEDICARE, OTHER ==
[~2022-11-03 11:26] MED LIST changes: -BUPIVACAINE 0.5% PF 30 ML VIAL ONE; +VANCOMYCIN INJ 1 GM, VANCOMYCIN INJ 250 MG in SODIUM CHLORIDE 0.9% 250 ML IV SCH
[2022-11-03] MEDS ORDERED: PIPERACILLIN/TAZOBACTAM 3.375 GM in SODIUM CHLORIDE 0.9% MINIBAG 100 ML IV STA (12:04)
[2022-11-03] MEDS ORDERED: VANCOMYCIN INJ 1.75 GM in SODIUM CHLORIDE 0.9% 500 ML IV STA (12:04)
[2022-11-03] MEDS ORDERED: MORPHINE 2 MG/ML CARPUJECT IVP STA (12:06)
--- NOTE | 2022-11-03 12:07 | ED Physician Documentation ---
History of Present Illness - Stated complaint Stated Complaint: RT FOOT PX/SWOLLEN - Chief complaint Chief Complaint: Ext Problem - History obtained from History obtained from: Patient, Family - History of Present Illness Timing: How many days ago (10) Pain level max: 8 Pain level now: 8 - Additonal information Additional information: Patient is a 72-year-old diabetic male who presents to the emergency department after stepping on a nail approximately 10 days ago that went through his shoe and into the bottom of his foot. I saw the patient on October 29 when he had redness and swelling starting on the dorsum of the foot, started on clindamycin and ciprofloxacin. He did not notice much improvement in 2 days and so returned. At that time he saw my colleague, Dr. Mcdonough, x-rays were performed do not show any fractures or foreign bodies. He was changed from clindamycin to cephalexin and the ciprofloxacin was continued. Since that time the redness and swelling have progressively worsened, the patient states that he has having subjective fevers at night, chills and sweats. States the pain is worsening as well. Worse with walking, nothing makes it better. Review of Systems Constitutional: reports: Fever, Chills GI: denies: Vomiting, Diarrhea Skin: denies: Rash Musculoskeletal: denies: Neck pain, Back pain Neurologic: denies: Headache PD PAST MEDICAL HISTORY - Past Medical History Past Medical History: Yes Cardiovascular: Hypertension, High cholesterol, Coronary artery disease Respiratory: None Neuro: None Endocrine/Autoimmune: Type 2 diabetes GI: GERD : None HEENT: None Psych: None Musculoskeletal: Rheumatoid arthritis Derm: None - Past Surgical History Past Surgical History: Yes General: Cholecystectomy Cardiovascular: Coronary stent HEENT: Rhinoplasty - Present Medications Home Medications: Ambulatory Orders Medication Instructions Recorded Confirmed Aspirin 81 mg PO DAILY 07/24/16 11/03/22 Atorvastatin [Lipitor] 4 tab PO DAILY 07/24/16 11/03/22 Loratadine [Allergy Relief] 10 mg PO DAILY 07/24/16 11/03/22 Metformin HCl [Fortamet] 1,000 mg PO DAILY 07/24/16 11/03/22 allopurinoL [Allopurinol] 100 mg PO DAILY 07/24/16 11/03/22 carvediloL [Coreg] 0.5 tab PO DAILY 07/24/16 11/03/22 hydroCHLOROthiazide 25 mg PO DAILY 07/24/16 11/03/22 [Hydrochlorothiazide] lisinopriL [Lisinopril] 10 mg PO DAILY 07/24/16 11/03/22 Semaglutide [Ozempic] 1 mg SUBQ Q7D 03/27/19 11/03/22 Ciprofloxacin HCl [Cipro] 500 mg PO BID #20 tablet 10/29/22 11/03/22 clindamycin HCL [Cleocin HCl] 300 mg PO Q6H #40 cap 10/29/22 HYDROcod/ACETAM 5/325 [[place] 5/325] 1 ea PO Q6H PRN #18 tablet 10/31/22 11/03/22 Naproxen 500 mg PO BID #20 tab 10/31/22 11/03/22 cephALEXin [Keflex] 500 mg PO QID #20 cap 10/31/22 11/03/22 Dapagliflozin Propanediol [Farxiga] 10 mg PO DAILY 11/03/22 11/03/22 Glipizide [Glipizide Xl] 10 mg PO DAILY 11/03/22 11/03/22 - Allergies Allergies/Adverse Reactions: Allergies Allergy/AdvReac Type Severity Reaction Status Date / Time clopidogrel Allergy Rash Verified 11/03/22 11:34 - Social History Does the pt smoke?: No Smoking Status: Never smoker Does the pt drink ETOH?: Yes Does the pt have substance abuse?: No - Immunizations Immunizations are current?: Yes - POLST Patient has POLST: No PD ED PE NORMAL - Vitals Vital signs reviewed: Yes - General General: Alert and oriented X 3, No acute distress - HEENT HEENT: Moist mucous membranes - Neck Neck: Supple, no meningeal sign - Cardiac Cardiac: RRR, Strong equal pulses - Respiratory Respiratory: No respiratory distress, Clear bilaterally - Abdomen Abdomen: Soft, Non tender, Non distended - Derm Derm: Warm and dry - Extremities Extremities: Other (The right foot has significant erythema, swelling and tenderness over the dorsum of the foot, mild erythema to the plantar aspect of the foot. No significant plantar tenderness. No crepitus. There is no streaking above the ankle.) - Neuro Neuro: Alert and oriented X 3 - Psych Psych: Normal mood, Normal affect Results - Vitals Vitals: Vital Signs - 24 hr 11/03/22 11:34 Temperature 37.1 C Heart Rate 79 Respiratory 18 Rate Blood Pressure 150/65 H O2 Saturation 99 Oxygen O2 Source Room air - Labs Labs: Laboratory Tests 11/03/22 11/03/22 11/03/22 12:16 12:16 12:16 WBC 12.1 H RBC 4.72 Hgb 12.5 L Hct 39.2 L MCV 83.1 MCH 26.5 L MCHC 31.9 L RDW 12.8 Plt Count 359 MPV 9.7 Neut # (Auto) 9.3 H Lymph # (Auto) 1.5 Cass # (Auto) 1.1 H Eos # (Auto) 0.1 Baso # (Auto) 0.1 Absolute Nucleated RBC 0.00 Nucleated RBC % 0.0 Sodium 130 L Potassium 4.5 Chloride 95 L Carbon Dioxide 29 Anion Gap 6.0 BUN 23 H Creatinine 1.3 Estimated GFR (MDRD) 54 L Glucose 359 H Estimat Average Glucose Hemoglobin A1c % Lactic Acid 1.1 Calcium 9.7 Total Bilirubin 0.5 AST 9 L ALT 7 L Alkaline Phosphatase 70 Total Protein 7.0 Albumin 3.4 Globulin 3.6 Albumin/Globulin Ratio 0.9 L Lipase 15 11/03/22 12:16 WBC RBC Hgb Hct MCV MCH MCHC RDW Plt Count MPV Neut # (Auto) Lymph # (Auto) Cass # (Auto) Eos # (Auto) Baso # (Auto) Absolute Nucleated RBC Nucleated RBC % Sodium Potassium Chloride Carbon Dioxide Anion Gap BUN Creatinine Estimated GFR (MDRD) Glucose Estimat Average Glucose 189 H Hemoglobin A1c % 8.2 H Lactic Acid Calcium Total Bilirubin AST ALT Alkaline Phosphatase Total Protein Albumin Globulin Albumin/Globulin Ratio Lipase PD Medical Decision Making - ED course Complexity details: reviewed results, re-evaluated patient, considered differential, d/w patient, d/w family ED course: 72-year-old male status post a plantar puncture wound of the foot that now Has cellulitis in the foot. labs were ordered, blood cultures drawn. Lactate ordered. Patient is diabetic. He has now failed cephalexin, clindamycin and ciprofloxacin. Given IV vancomycin and Zosyn. We will admit the patient for further care. Discussed the case with Dr. Tejeda, hospitalist who accepts This document was made in part using voice recognition software. While efforts are made to proofread this document, sound alike and grammatical errors may occur. Departure - Departure Disposition: 66 [facility] DC/Xfer Clinical Impression: Foot pain, right Cellulitis Qualifiers: Site of cellulitis: extremity Site of cellulitis of extremity: lower extremity Laterality: right Qualified Code(s): L03.115 - Cellulitis of right lower limb Puncture wound of plantar aspect of foot Qualifiers: Encounter type: initial encounter Laterality: right Qualified Code(s): S91.331A - Puncture wound without foreign body, right foot, initial encounter Condition: Good Forms: PCP List
[2022-11-03 12:26] LABS: BASOPHILS # (AUTO) 0.1 10^3/uL (0.0-0.1); BASOPHILS % (AUTO) 0.6 %; EOSINOPHILS # (AUTO) 0.1 10^3/uL (0.0-0.7); EOSINOPHILS % (AUTO) 0.7 %; HCT - HEMATOCRIT 39.2 % (42.0-52.0); HGB - HEMOGLOBIN 12.5 g/dL (14.0-18.0); LYMPHOCYTES # (AUTO) 1.5 10^3/uL (1.5-3.5); LYMPHOCYTES % (AUTO) 12.6 %; MEAN CORPUSCULAR HEMOGLOBIN 26.5 pg (27.0-31.0); MEAN CORPUSCULAR HGB CONC 31.9 g/dL (32.0-36.0); MEAN CORPUSCULAR VOLUME 83.1 fL (80.0-94.0); MEAN PLATELET VOLUME 9.7 fL (7.4-11.4); MONOCYTES # (AUTO) 1.1 10^3/uL (0.0-1.0); MONOCYTES % (AUTO) 8.9 %; NEUTROPHILS # (AUTO) 9.3 10^3/uL (1.5-6.6); NEUTROPHILS % (AUTO) 76.7 %; PLT - PLATELET COUNT 359 10^3/uL (130-450); RED BLOOD COUNT 4.72 10^6/uL (4.70-6.10); RED CELL DISTRIBUTION WIDTH 12.8 % (12.0-15.0); WHITE BLOOD COUNT 12.1 x10^3/uL (4.8-10.8)
[2022-11-03 12:39] LABS: ALBUMIN 3.4 g/dL (3.2-5.5); ALBUMIN/GLOBULIN RATIO 0.9 (1.0-2.2); BILIRUBIN,TOTAL 0.5 mg/dL (0.2-1.0); CALCIUM 9.7 mg/dL (8.5-10.3); CREATININE 1.3 mg/dL (0.6-1.3); POTASSIUM 4.5 mmol/L (3.5-4.5)
[2022-11-03 12:44] LABS: ESTIMATED AVERAGE GLUCOSE 189 mg/dL (70-100); HEMOGLOBIN A1c% 8.2 % (4.27-6.07)
[2022-11-03] MEDS ORDERED: ONDANSETRON 4 MG/2 ML VIAL IVP PRN (12:44)
[2022-11-03] MEDS ORDERED: ACETAMINOPHEN 325 MG TABLET PO PRN (12:44)
[2022-11-03] MEDS ORDERED: HYDROmorphone 1 MG/ML CARPUJECT IVP PRN (12:49)
--- NOTE | 2022-11-03 12:58 | HISTORY & PHYSICAL EXAMINATION ---
Chief Complaint - Chief Complaint Chief Complaint: Painful, increasing swelling of R foot, despite antibx, and getting chills History of Present Illness - Admitted From Admitted From:: ED - History Obtained From History obtained from: ED provider and the pt - History of Present Illness HPI Comment/Other: This is a 72-year-old male with history of diabetes on oral agents, admits he never checkss his glu, and has a history of hypertension. The patient stepped on a nail, ten days ago, that went through his shoe of the right foot. He washed the foot. He noticed pain and redness on the dorsum of the foot 5 days ago and came to the ER. He was discharged on oral Cipro and Clindamycin. He returned back to the ER 2 days ago with even further redness and pain, a foot x-ray was done that showed no trauma or abnormality, and his medications were changed to Keflex plus Clindamycin. He now comes back to the ER for the third time complaining of redness of his entire R foot and reports he is getting chills. Today's ER evaluation shows that he has cellulitis of the R foot, with redness, pain and swelling of mostly the dorsum of the foot, slightly red on the plantar side as well and a puncture wound is evident. His WBC is 12.9 and serum glu is 359. In the ER, he had blood cultures taken and then he received empiric Vanco and Zosyn. The ED provider spoke to me about this patient. He will be admitted for managing cellulitis that has failed outpatient antibiotics in a patient who has uncontrolled diabetes. I spoke to him about his CODE BLUE wishes and he wants to be a full code. History - Past Medical History Cardiovascular: reports: Hypertension, High cholesterol, Coronary artery disease Respiratory: reports: None Neuro: reports: None Endocrine/Autoimmune: reports: Type 2 diabetes GI: reports: GERD : reports: None HEENT: reports: None Psych: reports: None Musculoskeletal: reports: Rheumatoid arthritis Derm: reports: None MRSA Hx?: No - Past Surgical History General: reports: Cholecystectomy Cardiovascular: reports: Coronary stent HEENT: reports: Rhinoplasty - Family & Social History Living arrangement: At home Living Situation: With spouse/s.o. Social History Notes: Patient is a non-smoker who quit 50 years ago. He drinks alcohol occasionally but not daily. He denies illicit drug use. - Substance History Use: Uses substance without health or social issues: NONE - POLST Patient has POLST: No Meds/Allgy - Home Medications Home Medications: Ambulatory Orders Medication Instructions Recorded Confirmed Aspirin 81 mg PO DAILY 07/24/16 11/03/22 Atorvastatin [Lipitor] 40 mg PO DAILY 07/24/16 11/03/22 Loratadine [Allergy Relief] 10 mg PO DAILY 07/24/16 11/03/22 Metformin HCl [Fortamet] 1,000 mg PO DAILY 07/24/16 11/03/22 allopurinoL [Allopurinol] 100 mg PO DAILY 07/24/16 11/03/22 carvediloL [Coreg] 12.5 mg PO DAILY 07/24/16 11/03/22 hydroCHLOROthiazide 25 mg PO DAILY 07/24/16 11/03/22 [Hydrochlorothiazide] lisinopriL [Lisinopril] 10 mg PO DAILY 07/24/16 11/03/22 Semaglutide [Ozempic] 1 mg SUBQ Q7D 03/27/19 11/03/22 Ciprofloxacin HCl [Cipro] 500 mg PO BID #20 tablet 10/29/22 11/03/22 clindamycin HCL [Cleocin HCl] 300 mg PO Q6H #40 cap 10/29/22 11/03/22 cephALEXin [Keflex] 500 mg PO QID #20 cap 10/31/22 11/03/22 Dapagliflozin Propanediol [Farxiga] 10 mg PO DAILY 11/03/22 11/03/22 Glipizide [Glipizide Xl] 10 mg PO DAILY 11/03/22 11/03/22 - Allergies Allergies/Adverse Reactions: Allergies Allergy/AdvReac Type Severity Reaction Status Date / Time clopidogrel Allergy Rash Verified 11/03/22 11:34 Review of Systems - Constitutional Constitutional: reports: Fever, Chills, Other (He has been eating poorly for about the past 1 week, has had no appetite, and has stopped taking all of his medicines for the past 3 to 4 days, not wanting them to interfere with his new antibiotics, he said.) - Musculoskeletal Musculoskeletal: reports: Other (R foot pain) - All Other Systems All Other Systems: reports: Reviewed and negative Exam - Vital Signs Reviewed Vital Signs: Yes Vital Signs: Vital Signs x48h Temp Pulse Resp BP Pulse Ox 11/03/22 11:34 37.1 C 79 18 150/65 H 99 - Physical Exam General Appearance: positive: No acute distress, Alert, Other (He is currently having shaking chills.) Eyes Bilateral: positive: Normal inspection, EOMI ENT: positive: ENT inspection nml, No signs of dehydration Neck: positive: Nml inspection, No JVD Respiratory: positive: No respiratory distress, Breath sounds nml Cardiovascular: positive: Regular rate & rhythm, No murmur Abdomen: positive: Non-tender, Nml bowel sounds, No distention Skin: positive: Warm, Dry Extremities: positive: Other (The entire dorsum of the right foot is swollen, red and tender, the proximal toes are involved, the redness does not extend up to his ankle. The dorsum of the foot has a puncture wound and is mildly reddened, and not as swollen as the dorsum.) Neurologic/Psychiatric: positive: Oriented x3, Motor nml Conclusion/Plan - Problem List (1) Cellulitis Conclusion/Plan: Patient has cellulitis of the right foot on physical exam. He has failed 2 different combinations of antibiotics over the past 5 days, after 2 ER visits. Plan: Admit the patient to inpatient status Follow WBC daily Await blood culture results to tailor antibx Continue empiric IV Zosyn and IV Vanco We will order leg elevation and pain meds as needed We will order the redness area to be outlined. If there is no improvement in 1- 2 days, we will consider getting an MRI to look for osteomyelitis Qualifiers: Site of cellulitis: extremity Site of cellulitis of extremity: lower extremity Laterality: right Qualified Code(s): L03.115 - Cellulitis of right lower limb (2) Puncture wound of plantar aspect of foot Conclusion/Plan: As per history Plan: As in #1 We will assure that he is up-to-date on his tetanus shot Qualifiers: Encounter type: initial encounter Laterality: right Qualified Code(s): S91.331A - Puncture wound without foreign body, right foot, initial encounter (3) Uncontrolled diabetes mellitus Conclusion/Plan: Serum glucose was 359 on presentation (all labs reviewed), this is probably from not taking his meds for several days because he felt bad plus did not want them to interfere with his antibiotics he said, and also elevated due to the active infection. His A1c came back at 8.2 indicating suboptimal glu control. Patient admitted to me that even before this infection, he never checks his serum glucose but does take his 4 diabetic meds and he does follow a diabetic diet Plan: We will order a diabetic diet We will begin sliding scale insulin coverage and do fingerstick checks and hypoglycemia protocol We will not use his glipizide or metformin currently, and we have no Ozempic or his other agent on formulary to use (4) HTN (hypertension) Conclusion/Plan: As per history. Plan: Will resume his usual BP meds - Lab Results Fish Bones: 11/03/22 12:16 11/03/22 12:16 - Other Other Results/Comments: Attestation: The patient is expected to be hospitalized for greater than 2 midnights, and is expected to be discharged or transferred to another facility within 96 hours: Yes.
[2022-11-03] MEDS ORDERED: SODIUM CHLORIDE 0.9% 1,000 ML IV SCH (13:00)
[2022-11-03] MEDS: SODIUM CHLORIDE FLUSH 0.9% 10 ML SYRINGE IVP SCH ×2 (16:01→23:53)
--- NOTE | 2022-11-03 16:10 | PHARMACY PROGRESS NOTE ---
- Best Possible Medication History Admit Date and Time: 11/03/22 1244 Processed by: Pharmacy Medication History completed: Yes Patient Interview: Completed Secondary Source(s): Insurance records As the person ultimately responsible for medication therapy, providers are able to order a medication from an existing home medication list in [facility] via the "Reconcile Routine" prior to Confirmation of that medication by systems support engineer. Such practice is discouraged except when the physician, in their clinical judgment, deems that a medical need exists for a medication without regard to previous use.
--- NOTE | 2022-11-03 16:13 | PHARMACY PROGRESS NOTE ---
- Therapy Status Vancomycin regimen day #: 1 Therapy status: Awaiting steady state Basis for treatment: Empirical Treatment indication: CELLULITIS Trough goal: 10-15 Concurrent antibiotics: ZOSYN - PEGGY Risk Risk level for Acute Kidney Injury: Moderate Acute Kidney Injury risk factors: Piperacillin/Tozobactam, Diabetes - Monitoring and Recommendation Clinical response to treatment: I&O Previous 24 hours 11/01/22 11/02/22 11/03/22 23:59 23:59 23:59 Intake Total 600 Balance 600 Lab Results 11/03/22 12:16 BUN 23 H Creatinine 1.3 Estimated GFR (MDRD) 54 L Next trough due prior to maintenance dose #: 4 Next trough due (date/time): 11/04/2022 AT 23:30
[2022-11-03] MEDS: INSULIN LISPRO 300 UNIT/3 ML PEN SUBQ SCH ×2 (16:59→20:32)
[2022-11-03] MEDS: PIPERACILLIN/TAZOBACTAM 3.375 GM in SODIUM CHLORIDE 0.9% MINIBAG 100 ML IV SCH ×2 (17:05→23:53)
[2022-11-03] MEDS: NAPROXEN 250 MG TABLET PO SCH (20:31)
[2022-11-03] MEDS: ATORVASTATIN 10 MG TABLET PO SCH (20:31)
[2022-11-04] MEDS: VANCOMYCIN INJ 1 GM, VANCOMYCIN INJ 250 MG in SODIUM CHLORIDE 0.9% 250 ML IV SCH ×2 (00:24→11:48)
[2022-11-04] MEDS: PIPERACILLIN/TAZOBACTAM 3.375 GM in SODIUM CHLORIDE 0.9% MINIBAG 100 ML IV SCH ×3 (05:32→19:45)
[2022-11-04 05:39] LABS: BASOPHILS # (AUTO) 0.1 10^3/uL (0.0-0.1); BASOPHILS % (AUTO) 0.7 %; EOSINOPHILS # (AUTO) 0.3 10^3/uL (0.0-0.7); EOSINOPHILS % (AUTO) 3.1 %; HCT - HEMATOCRIT 36.3 % (42.0-52.0); HGB - HEMOGLOBIN 11.4 g/dL (14.0-18.0); LYMPHOCYTES # (AUTO) 1.3 10^3/uL (1.5-3.5); LYMPHOCYTES % (AUTO) 13.8 %; MEAN CORPUSCULAR HEMOGLOBIN 26.2 pg (27.0-31.0); MEAN CORPUSCULAR HGB CONC 31.4 g/dL (32.0-36.0); MEAN CORPUSCULAR VOLUME 83.4 fL (80.0-94.0); MEAN PLATELET VOLUME 9.6 fL (7.4-11.4); MONOCYTES # (AUTO) 0.9 10^3/uL (0.0-1.0); MONOCYTES % (AUTO) 8.9 %; NEUTROPHILS % (AUTO) 72.5 %; PLT - PLATELET COUNT 319 10^3/uL (130-450); RED BLOOD COUNT 4.35 10^6/uL (4.70-6.10); RED CELL DISTRIBUTION WIDTH 12.9 % (12.0-15.0); WHITE BLOOD COUNT 9.6 x10^3/uL (4.8-10.8)
[2022-11-04 05:55] LABS: CALCIUM 9.4 mg/dL (8.5-10.3); CREATININE 1.3 mg/dL (0.6-1.3); MAGNESIUM 1.7 mg/dL (1.7-2.3); PHOSPHORUS 3.4 mg/dL (2.5-5.0); POTASSIUM 4.4 mmol/L (3.5-4.5)
[2022-11-04] MEDS: allopurinoL 100 MG TABLET PO SCH (08:15)
[2022-11-04] MEDS: ASPIRIN CHEW 81 MG TABLET PO SCH (08:15)
[2022-11-04] MEDS: lisinopriL 5 MG TABLET PO SCH (08:15)
[2022-11-04] MEDS: LORATADINE 10 MG TABLET PO SCH (08:15)
[2022-11-04] MEDS: INSULIN LISPRO 300 UNIT/3 ML PEN SUBQ SCH ×4 (08:16→20:56)
[2022-11-04] MEDS: ENOXAPARIN 40 MG/0.4 ML SYRINGE SUBQ SCH (08:16)
[2022-11-04] MEDS: NAPROXEN 250 MG TABLET PO SCH ×2 (08:56→20:56)
--- NOTE | 2022-11-04 09:25 | PROVIDER PROGRESS NOTE ---
Assessment/Plan - Problem List (1) Cellulitis Qualifiers: Qualified Code(s): L03.115 - Cellulitis of right lower limb Assessment/Plan: Patient has cellulitis of the right foot on physical exam. He has failed 2 different combinations of antibiotics over the past 5 days, after 2 ER visits. 1 of those visits had a foot x-ray that showed no evidence of bone involvement (all labs and imaging reviewed) There are no wound cultures, since nothing is draining. He has had blood culture sent off. He has been started on empiric IV Zosyn and Vanco Plan: Follow WBC daily Await blood culture results to tailor antibx Continue empiric IV Zosyn and IV Vanco I will order leg elevation and cont pain meds as needed The redness area was outlined. If there is no improvement in another day, I will consider getting an MRI to look for osteomyelitis (today Saturday and we have no MRI available today). I updated his at bedside with all the plans Qualifiers: Site of cellulitis: extremity Site of cellulitis of extremity: lower extremity Laterality: right Qualified Code(s): L03.115 - Cellulitis of right lower limb (2) Puncture wound of plantar aspect of foot Conclusion/Plan: As per history. at bedside today reported that on the day he had the puncture he went to a [place] walk-in clinic and got topical iodine as well as a tetanus shot therefore he is up-to-date on his tetanus status. Plan: As in #1 I will order PT and OT evaluations (today is Saturday and we have neither PT or OT here until tomorrow) I updated his at bedside Qualifiers: Encounter type: initial encounter Laterality: right Qualified Code(s): S91.331A - Puncture wound without foreign body, right foot, initial encounter (3) Uncontrolled diabetes mellitus Conclusion/Plan: Serum glucose was 359 on presentation (all labs reviewed), this is probably from not taking his meds for several days because he felt bad plus did not want them to interfere with his antibiotics he said, and also elevated due to the active infection. His A1c came back at 8.2 indicating slightly suboptimal glu control. Patient admitted to me that even before this infection, he never checks his serum glucose but does take his 4 diabetic meds and he does follow a diabetic diet. Today the patient revealed that he was also on 2 medicines that he bought on line, for decreasing sugar and he is taking these for a month but was not on them for the last 4 days because he was so anorexic Plan: Cont a diabetic diet Cont sliding scale insulin coverage and do fingerstick checks and hypoglycemia protocol I did not resume his glipizide or metformin currently, and we have no Ozempic or Farxiga on formulary to use (4) HTN (hypertension) Conclusion/Plan: As per history. Plan: Cont his usual BP meds of Carvedilol and Lisinopril, but not the HCTZ, as he is currently needing iv hydration, due to recent anorexia - Current Meds Current Meds: Current Medications Generic Name Dose Route Start Last Admin Trade Name Freq PRN Reason Stop Dose Admin Acetaminophen 650 mg 11/03/22 12:44 11/03/22 16:59 Acetaminophen 325 Mg Tablet PO 650 mg Q4HR PRN Administration Pain 1 to 4, or Fever Allopurinol 100 mg 11/04/22 09:00 11/04/22 08:15 Allopurinol 100 Mg Tablet PO 100 mg DAILY TAWANNA Administration Aspirin 81 mg 11/04/22 09:00 11/04/22 08:15 Aspirin Chew 81 Mg Tablet PO 81 mg DAILY TAWANNA Administration Atorvastatin Calcium 40 mg 11/03/22 21:00 11/03/22 20:31 Atorvastatin 10 Mg Tablet PO 40 mg QPM TAWANNA Administration Enoxaparin Sodium 40 mg 11/04/22 09:00 11/04/22 08:16 Enoxaparin 40 Mg/0.4 Ml Syringe SUBQ 40 mg DAILY TAWANNA Administration Sodium Chloride 1,000 mls @ 60 mls/hr 11/03/22 13:00 11/04/22 06:29 Normal Saline 0.9% IV 60 mls/hr .[id number] TAWANNA Infusion Piperacillin Sod/Tazobactam 100 mls @ 200 mls/hr 11/03/22 18:00 11/04/22 06:2 9 Sod 3.375 gm/ Sodium Chloride IV Infused Q6H TAWANNA Infusion Vancomycin HCl 1 gm/ 250 mls @ 166.667 mls/hr 11/04/22 00:00 11/04/22 01:55 Vancomycin HCl 250 mg/ Sodium IV Infused Chloride Q12H TAWANNA Infusion Insulin Human Lispro 1 - 5 unit 11/03/22 17:00 11/04/22 08:16 Insulin Lispro 300 Unit/3 Ml Pen SUBQ 1 unit 0800,1200,1700,2100 TAWANNA Administration Protocol Lisinopril 10 mg 11/04/22 09:00 11/04/22 08:15 Lisinopril 5 Mg Tablet PO 10 mg DAILY TAWANNA Administration Loratadine 10 mg 11/04/22 09:00 11/04/22 08:15 Loratadine 10 Mg Tablet PO 10 mg DAILY TAWANNA Administration Naproxen 500 mg 11/03/22 21:00 11/04/22 08:56 Naproxen 250 Mg Tablet PO 500 mg BID TAWANNA Administration Sodium Chloride 10 ml 11/03/22 17:00 11/03/22 23:53 Sodium Chloride Flush 0.9% 10 Ml Syringe IVP Not Given 0100,0900,1700 TAWANNA - Lab Result Fish Bone Diagrams: 11/04/22 05:06 11/04/22 05:06 - Additional Planning My Orders: My Active Orders 11/03/22 12:44 Activity Orders [RC] Q2HR IO [RC] IOSHIFT Initiate Bowel Care Protocol [RC] .protocol Initiate Personal Care Protoco [RC] .protocol Oxygen Therapy [RC] .PRN Vital Signs [RC] 0800,1600,0000 Acetaminophen [Tylenol] 650 mg PO Q4HR PRN Ondansetron Inj [Zofran Inj] 4 mg IVP Q6HR PRN Sodium Chloride Flush 0.9% [Normal Saline Flush 0.9%] 10 ml IVP PRN PRN Code Status [OTHERS] Routine Condition of Patient [OTHERS] Routine DVT Prophylaxis [OTHERS] Routine 11/03/22 12:45 IV Insert [RC] .ONCE 11/03/22 12:46 Initiate Line Care Protocol [RC] QSHIFT Miscellaenous Nursing Order [RC] QSHIFT 11/03/22 12:47 Miscellaenous Nursing Order [RC] ONCE 11/03/22 12:49 HYDROcod/ACETAM 5/325 [[place] 5/325] 1 tab PO Q4HR PRN HYDROmorphone 1MG CARP [Dilaudid 1Mg Carp] 1 mg IVP Q6HR PRN 11/03/22 12:50 Blood Glucose Checks - Eating [RC] 0800,1200,1700,2100 Initiate Hypoglycemia Protocol [RC] .protocol 11/03/22 13:00 Sodium Chloride 0.9% [Normal Saline 0.9%] 1,000 ml IV 60 mls/hr 11/03/22 Dinner Carb-controlled Diet [DIET] 11/03/22 17:00 Insulin Lispro [Humalog Kwikpen U-100] 1 - 5 unit SUBQ 0800,1200,1700,2100 Sodium Chloride Flush 0.9% [Normal Saline Flush 0.9%] 10 ml IVP 0100,0900,1700 11/03/22 18:00 Piperacillin/Tazobactam [Zosyn] 3.375 gm Sodium Chloride 0.9% Minibag [Normal Saline 0.9% Minibag] 100 ml IV Q6H 11/03/22 21:00 Atorvastatin [Lipitor] 40 mg PO QPM Naproxen [Naprosyn] 500 mg PO BID 11/04/22 Evaluate and Treat OT [OT] Routine Evaluate and Treat PT [PT] Routine 11/04/22 09:00 Aspirin Chewable [[place] Aspirin] 81 mg PO DAILY Enoxaparin [Lovenox] 40 mg SUBQ DAILY Loratadine [Claritin] 10 mg PO DAILY allopurinoL [Zyloprim] 100 mg PO DAILY carvediloL [Coreg] 12.5 mg PO DAILY lisinopriL [Zestril] 10 mg PO DAILY 11/04/22 23:30 VANCOMYCIN TROUGH [CHEM] Timed 11/05/22 05:00 BMP - BASIC METABOLIC PANEL [CHEM] DAILYLAB CBC - COMP BLD CT W/AUTO DIFF [HEME] DAILYLAB 11/06/22 05:00 BMP - BASIC METABOLIC PANEL [CHEM] DAILYLAB CBC - COMP BLD CT W/AUTO DIFF [HEME] DAILYLAB 11/07/22 05:00 BMP - BASIC METABOLIC PANEL [CHEM] DAILYLAB CBC - COMP BLD CT W/AUTO DIFF [HEME] DAILYLAB Subjective - Subjective Patient Reports: Feeling Better (Less swelling of the right foot and able to move his toes better, pain is unchanged, worse when he is in a vertical position) Objective Vital Signs: Vital Signs - 24 hr 11/03/22 11/03/22 11/03/22 11:34 14:08 15:48 Temperature 37.1 C 36.6 C 36.6 C Heart Rate 79 Heart Rate [ Brachial] Heart Rate [ 77 73 Radial] Respiratory 18 18 18 Rate Blood Pressure 150/65 H Blood Pressure [Left Brachial artery] Blood Pressure 161/68 H 128/92 H [Right Brachial artery] O2 Saturation 99 95 96 11/03/22 11/04/22 11/04/22 17:14 00:00 07:40 Temperature 37.0 C 36.6 C 36.8 C Heart Rate Heart Rate [ 64 61 Brachial] Heart Rate [ Radial] Respiratory 16 18 Rate Blood Pressure Blood Pressure 154/74 H 133/52 H [Left Brachial artery] Blood Pressure [Right Brachial artery] O2 Saturation 97 97 Oxygen O2 Source Room air I&O (Last 24 Hrs): Intake and Output Totals x24h 11/02/22 11/03/22 11/04/22 23:59 23:59 23:59 Intake Total 1120 1733 Balance 1120 1733 General: Alert, Oriented x3 HEENT: Mucous membr. moist/pink Neck: Supple, No JVD Neuro: Alert, Non Focal Cardiovascular: Regular rate Respiratory: No respiratory distress Abdomen: Soft, No tenderness Extremities: Other (Redness is unchanged in the outlined area, swelling is much decreased on the dorsum and plantar sides, puncture wound site dry, not draining) - Results Results: Laboratory Results WBC 9.6 x10^3/uL (4.8-10.8) 11/04/22 05:06 RBC 4.35 10^6/uL (4.70-6.10) L 11/04/22 05:06 Hgb 11.4 g/dL (14.0-18.0) L 11/04/22 05:06 Hct 36.3 % (42.0-52.0) L 11/04/22 05:06 MCV 83.4 fL (80.0-94.0) 11/04/22 05:06 MCH 26.2 pg (27.0-31.0) L 11/04/22 05:06 MCHC 31.4 g/dL (32.0-36.0) L 11/04/22 05:06 RDW 12.9 % (12.0-15.0) 11/04/22 05:06 Plt Count 319 10^3/uL (130-450) 11/04/22 05:06 MPV 9.6 fL (7.4-11.4) 11/04/22 05:06 Neut # (Auto) 7.0 10^3/uL (1.5-6.6) H 11/04/22 05:06 Lymph # (Auto) 1.3 10^3/uL (1.5-3.5) L 11/04/22 05:06 Swain # (Auto) 0.9 10^3/uL (0.0-1.0) 11/04/22 05:06 Eos # (Auto) 0.3 10^3/uL (0.0-0.7) 11/04/22 05:06 Baso # (Auto) 0.1 10^3/uL (0.0-0.1) 11/04/22 05:06 Absolute Nucleated RBC 0.00 x10^3/uL 11/04/22 05:06 Nucleated RBC % 0.0 /100WBC 11/04/22 05:06 Sodium 137 mmol/L (135-145) 11/04/22 05:06 Potassium 4.4 mmol/L (3.5-4.5) 11/04/22 05:06 Chloride 102 mmol/L (101-111) 11/04/22 05:06 Carbon Dioxide 31 mmol/L (21-32) 11/04/22 05:06 Anion Gap 4.0 (6-13) L 11/04/22 05:06 BUN 21 mg/dL (6-20) H 11/04/22 05:06 Creatinine 1.3 mg/dL (0.6-1.3) 11/04/22 05:06 Estimated GFR (MDRD) 54 (>89) L 11/04/22 05:06 Glucose 198 mg/dL (74-104) H 11/04/22 05:06 POC Whole Bld Glucose 171 mg/dL (70 - 100) H 11/04/22 07:21 Estimat Average Glucose 189 mg/dL (70-100) H 11/03/22 12:16 Hemoglobin A1c % 8.2 % (4.27-6.07) H 11/03/22 12:16 Lactic Acid 1.1 mmol/L (0.5-2.2) 11/03/22 12:16 Calcium 9.4 mg/dL (8.5-10.3) 11/04/22 05:06 Phosphorus 3.4 mg/dL (2.5-5.0) 11/04/22 05:06 Magnesium 1.7 mg/dL (1.7-2.3) 11/04/22 05:06 Total Bilirubin 0.5 mg/dL (0.2-1.0) 11/03/22 12:16 AST 9 IU/L (10-42) L 11/03/22 12:16 ALT 7 IU/L (10-60) L 11/03/22 12:16 Alkaline Phosphatase 70 IU/L (42-121) 11/03/22 12:16 Total Protein 7.0 g/dL (6.4-8.9) 11/03/22 12:16 Albumin 3.4 g/dL (3.2-5.5) 11/03/22 12:16 Globulin 3.6 g/dL (2.1-4.2) 11/03/22 12:16 Albumin/Globulin Ratio 0.9 (1.0-2.2) L 11/03/22 12:16 Lipase 15 U/L (11-82) 11/03/22 12:16 - Procedures Procedures: Procedures SUPPLEMENT L INGUINAL REGION WITH SYNTH SUB, OPEN APPROACH (10/22/17)
[2022-11-04] MEDS ORDERED: SODIUM CHLORIDE 0.9% 1,000 ML IV SCH (09:26)
[2022-11-04] MEDS: SODIUM CHLORIDE FLUSH 0.9% 10 ML SYRINGE IVP SCH ×2 (11:06→15:26)
[2022-11-04] MEDS: carvediloL 12.5 MG TABLET PO SCH (11:48)
[2022-11-04] MEDS: SACCHAROMYCES BOULARDII 250 MG CAPSULE PO SCH (17:24)
[2022-11-04] MEDS: HYDROcod/ACETAM 5/325 MG TABLET PO PRN (17:29)
[2022-11-04] MEDS: ATORVASTATIN 10 MG TABLET PO SCH (20:55)
[2022-11-04 23:55] LABS: VANCOMYCIN,TROUGH 25.4 ug/mL (10.0-20.0)
[2022-11-05] MEDS: PIPERACILLIN/TAZOBACTAM 3.375 GM in SODIUM CHLORIDE 0.9% MINIBAG 100 ML IV SCH ×4 (02:05→19:57)
[2022-11-05] MEDS: SODIUM CHLORIDE FLUSH 0.9% 10 ML SYRINGE IVP SCH ×3 (02:06→17:08)
[2022-11-05 05:11] LABS: BASOPHILS # (AUTO) 0.1 10^3/uL (0.0-0.1); BASOPHILS % (AUTO) 0.7 %; EOSINOPHILS # (AUTO) 0.4 10^3/uL (0.0-0.7); EOSINOPHILS % (AUTO) 3.6 %; HCT - HEMATOCRIT 33.6 % (42.0-52.0); HGB - HEMOGLOBIN 10.7 g/dL (14.0-18.0); LYMPHOCYTES # (AUTO) 1.7 10^3/uL (1.5-3.5); LYMPHOCYTES % (AUTO) 15.7 %; MEAN CORPUSCULAR HEMOGLOBIN 26.6 pg (27.0-31.0); MEAN CORPUSCULAR HGB CONC 31.8 g/dL (32.0-36.0); MEAN CORPUSCULAR VOLUME 83.6 fL (80.0-94.0); MEAN PLATELET VOLUME 9.7 fL (7.4-11.4); MONOCYTES # (AUTO) 0.8 10^3/uL (0.0-1.0); MONOCYTES % (AUTO) 7.6 %; NEUTROPHILS # (AUTO) 7.8 10^3/uL (1.5-6.6); NEUTROPHILS % (AUTO) 71.2 %; PLT - PLATELET COUNT 337 10^3/uL (130-450); RED BLOOD COUNT 4.02 10^6/uL (4.70-6.10)
[2022-11-05 05:30] LABS: CALCIUM 9.2 mg/dL (8.5-10.3); CREATININE 1.5 mg/dL (0.6-1.3); POTASSIUM 4.1 mmol/L (3.5-4.5)
--- NOTE | 2022-11-05 08:08 | PROVIDER PROGRESS NOTE ---
Assessment/Plan - Problem List (1) Cellulitis Qualifiers: Qualified Code(s): L03.115 - Cellulitis of right lower limb Assessment/Plan: Patient failed 2 different combinations of antibiotics over the past 5 days, after 2 ER visits. One of those ER visits had a foot x-ray that showed no evidence of bone involvement (all labs and imaging reviewed) There are no wound cultures, since nothing is draining. His blood culture are neg to date. He has been started on empiric IV Zosyn and Vanco. Foot MRI was done today to look for osteomyelitis. It showed no osteomyelitis present, there are osteoarthritic changes of the midfoot and forefoot especially MTP joint, small ulceration on the plantar aspect with cellulitis, also myositis of the plantar foot muscles without fluid collection. Today his foot is more swollen therefore the toes are less mobile again and pain has increased, since yesterday Plan: Continue empiric antibiotics Follow WBC daily Await blood culture results to tailor antibx Cont leg elevation and cont pain meds as needed. I will give scheduled NSAID (TID w/ meals) to decrease the swelling as well. We will check a serum CK level regarding the report of myositis by MRI scan Check uric acid level, and consider adding colchicine and allopurinol if this c ould be gout. I updated the at bedside today regarding all the above Qualifiers: Site of cellulitis: extremity Site of cellulitis of extremity: lower extremity Laterality: right Qualified Code(s): L03.115 - Cellulitis of right lower limb (2) Puncture wound of plantar aspect of foot Conclusion/Plan: As per history. at bedside reported that on the day he had the puncture he went to a [facility] and got topical iodine as well as a tetanus shot. Therefore he is up-to-date on his tetanus status. Plan: As in #1 PT and OT evaluations ordered to be done today Qualifiers: Encounter type: initial encounter Laterality: right Qualified Code(s): S91.331A - Puncture wound without foreign body, right foot, initial encounter (3) Uncontrolled diabetes mellitus Conclusion/Plan: Serum glucose was 359 on presentation (all labs reviewed), this is probably from not taking his meds for several days because he felt bad plus did not want them to interfere with his antibiotics he said, and also elevated due to the active infection. His A1c came back at 8.2 indicating slightly suboptimal glu control. Patient admitted to me that even before this infection, he never checks his serum glucose but does take his 4 diabetic meds and he does follow a diabetic diet. Today the patient revealed that he was also on 2 medicines that he bought on line, for decreasing sugar and he is taking these for a month but was not on them for the last 4 days because he was so anorexic Plan: Cont a diabetic diet Cont sliding scale insulin coverage and do fingerstick checks and hypoglycemia protocol I did not resume his glipizide or metformin currently, and we have no Ozempic or Farxiga on formulary to use (4) HTN (hypertension) Conclusion/Plan: As per history. Plan: Cont his usual BP meds of Carvedilol and Lisinopril, but not the HCTZ, as he needed iv hydration (5) CKD Conclusion/Plan: All labs were reviewed. His creatinine came back at 1.5 today. I reviewed his entire EMR and he runs creatinines of 1.3-1.5 Plan: IV hydration was stopped this morning at 0600 Avoid nephrotoxins Follow BMP daily - Current Meds Current Meds: Current Medications Generic Name Dose Route Start Last Admin Trade Name Freq PRN Reason Stop Dose Admin Acetaminophen 650 mg 11/03/22 12:44 11/03/22 16:59 Acetaminophen 325 Mg Tablet PO 650 mg Q4HR PRN Administration Pain 1 to 4, or Fever Hydrocodone Bitart/Acetaminophen 1 tab 11/03/22 12:49 11/04/22 17:29 Hydrocod/Acetam 5/325 Mg Tablet PO 1 tab Q4HR PRN Administration Moderate Pain (Level 4-6) Allopurinol 100 mg 11/04/22 09:00 11/04/22 08:15 Allopurinol 100 Mg Tablet PO 100 mg DAILY TAWANNA Administration Aspirin 81 mg 11/04/22 09:00 11/04/22 08:15 Aspirin Chew 81 Mg Tablet PO 81 mg DAILY TAWANNA Administration Atorvastatin Calcium 40 mg 11/03/22 21:00 11/04/22 20:55 Atorvastatin 10 Mg Tablet PO 40 mg QPM TAWANNA Administration Carvedilol 12.5 mg 11/04/22 09:00 11/04/22 11:48 Carvedilol 12.5 Mg Tablet PO 12.5 mg DAILY TAWANNA Administration Enoxaparin Sodium 40 mg 11/04/22 09:00 11/04/22 08:16 Enoxaparin 40 Mg/0.4 Ml Syringe SUBQ 40 mg DAILY TAWANNA Administration Piperacillin Sod/Tazobactam 100 mls @ 200 mls/hr 11/03/22 18:00 11/05/22 02:35 Sod 3.375 gm/ Sodium Chloride IV Infused Q6H [facility] Infusion Insulin Human Lispro 1 - 9 unit 11/04/22 17:13 11/04/22 20:56 Insulin Lispro 300 Unit/3 Ml Pen SUBQ 3 unit 0800,1200,1700,2100 [facility] Administration Protocol Lisinopril 10 mg 11/04/22 09:00 11/04/22 08:15 Lisinopril 5 Mg Tablet PO 10 mg DAILY TAWANNA Administration Loratadine 10 mg 11/04/22 09:00 11/04/22 08:15 Loratadine 10 Mg Tablet PO 10 mg DAILY TAWANNA Administration Naproxen 500 mg 11/03/22 21:00 11/04/22 20:56 Naproxen 250 Mg Tablet PO 500 mg BID TAWANNA Administration Saccharomyces Boulardii 250 mg 11/04/22 17:00 11/04/22 17:24 Saccharomyces Boulardii 250 Mg Capsule PO 250 mg BIDWM [facility] Administration Sodium Chloride 10 ml 11/03/22 17:00 11/05/22 02:06 Sodium Chloride Flush 0.9% 10 Ml Syringe IVP 10 ml 0100,0900,1700 [facility] Administration - Lab Result Fish Bone Diagrams: 11/05/22 04:07 11/05/22 04:07 - Additional Planning My Orders: My Active Orders 11/04/22 09:00 Aspirin Chewable [[place] Aspirin] 81 mg PO DAILY Enoxaparin [Lovenox] 40 mg SUBQ DAILY Loratadine [Claritin] 10 mg PO DAILY allopurinoL [Zyloprim] 100 mg PO DAILY carvediloL [Coreg] 12.5 mg PO DAILY lisinopriL [Zestril] 10 mg PO DAILY 11/04/22 17:00 Saccharomyces Boulardii [Florastor] 250 mg PO BIDWM 11/04/22 17:13 Insulin Lispro [Humalog Kwikpen U-100] 1 - 9 unit SUBQ 0800,1200,1700,2100 11/05/22 08:04 FOOT WO - RT [MRI] Stat 11/05/22 08:05 RN MRI Screening [RC] .ONCE 11/06/22 05:00 BMP - BASIC METABOLIC PANEL [CHEM] DAILYLAB CBC - COMP BLD CT W/AUTO DIFF [HEME] DAILYLAB 11/07/22 05:00 BMP - BASIC METABOLIC PANEL [CHEM] DAILYLAB CBC - COMP BLD CT W/AUTO DIFF [HEME] DAILYLAB Subjective - Subjective Patient Reports: Other (Increased swelling of the right foot, even before he walked with PT) Objective Vital Signs: Vital Signs - 24 hr 11/04/22 11/05/22 11/05/22 16:00 00:00 07:42 Temperature 37.0 C 36.9 C 36.6 C Heart Rate [ 65 63 64 Brachial] Respiratory 18 16 18 Rate Blood Pressure 140/70 H 139/59 H 146/72 H [Left Brachial artery] O2 Saturation 98 97 98 Oxygen O2 Source Room air I&O (Last 24 Hrs): Intake and Output Totals x24h 11/03/22 11/04/22 11/05/22 23:59 23:59 23:59 Intake Total 1120 3805.667 400 Output Total 2 Balance 1120 3803.667 400 General: Alert, Oriented x3 HEENT: Mucous membr. moist/pink Neck: Supple Neuro: Alert, Non Focal Cardiovascular: Regular rate Respiratory: No respiratory distress Abdomen: Soft Extremities: Other (Increased edema, smaller overall reddened area, of the right forefoot on the dorsum, more swollen toes also, but not red) - Results Results: Laboratory Results WBC 11.0 x10^3/uL (4.8-10.8) H 11/05/22 04:07 RBC 4.02 10^6/uL (4.70-6.10) L 11/05/22 04:07 Hgb 10.7 g/dL (14.0-18.0) L 11/05/22 04:07 Hct 33.6 % (42.0-52.0) L 11/05/22 04:07 MCV 83.6 fL (80.0-94.0) 11/05/22 04:07 MCH 26.6 pg (27.0-31.0) L 11/05/22 04:07 MCHC 31.8 g/dL (32.0-36.0) L 11/05/22 04:07 RDW 13.0 % (12.0-15.0) 11/05/22 04:07 Plt Count 337 10^3/uL (130-450) 11/05/22 04:07 MPV 9.7 fL (7.4-11.4) 11/05/22 04:07 Neut # (Auto) 7.8 10^3/uL (1.5-6.6) H 11/05/22 04:07 Lymph # (Auto) 1.7 10^3/uL (1.5-3.5) 11/05/22 04:07 [place] # (Auto) 0.8 10^3/uL (0.0-1.0) 11/05/22 04:07 Eos # (Auto) 0.4 10^3/uL (0.0-0.7) 11/05/22 04:07 Baso # (Auto) 0.1 10^3/uL (0.0-0.1) 11/05/22 04:07 Absolute Nucleated RBC 0.00 x10^3/uL 11/05/22 04:07 Nucleated RBC % 0.0 /100WBC 11/05/22 04:07 Sodium 137 mmol/L (135-145) 11/05/22 04:07 Potassium 4.1 mmol/L (3.5-4.5) 11/05/22 04:07 Chloride 104 mmol/L (101-111) 11/05/22 04:07 Carbon Dioxide 27 mmol/L (21-32) 11/05/22 04:07 Anion Gap 6.0 (6-13) 11/05/22 04:07 BUN 21 mg/dL (6-20) H 11/05/22 04:07 Creatinine 1.5 mg/dL (0.6-1.3) H 11/05/22 04:07 Estimated GFR (MDRD) 46 (>89) L 11/05/22 04:07 Glucose 186 mg/dL (74-104) H 11/05/22 04:07 POC Whole Bld Glucose 152 mg/dL (70 - 100) H 11/05/22 07:44 Estimat Average Glucose 189 mg/dL (70-100) H 11/03/22 12:16 Hemoglobin A1c % 8.2 % (4.27-6.07) H 11/03/22 12:16 Lactic Acid 1.1 mmol/L (0.5-2.2) 11/03/22 12:16 Calcium 9.2 mg/dL (8.5-10.3) 11/05/22 04:07 Phosphorus 3.4 mg/dL (2.5-5.0) 11/04/22 05:06 Magnesium 1.7 mg/dL (1.7-2.3) 11/04/22 05:06 Total Bilirubin 0.5 mg/dL (0.2-1.0) 11/03/22 12:16 AST 9 IU/L (10-42) L 11/03/22 12:16 ALT 7 IU/L (10-60) L 11/03/22 12:16 Alkaline Phosphatase 70 IU/L (42-121) 11/03/22 12:16 Total Protein 7.0 g/dL (6.4-8.9) 11/03/22 12:16 Albumin 3.4 g/dL (3.2-5.5) 11/03/22 12:16 Globulin 3.6 g/dL (2.1-4.2) 11/03/22 12:16 Albumin/Globulin Ratio 0.9 (1.0-2.2) L 11/03/22 12:16 Lipase 15 U/L (11-82) 11/03/22 12:16 Last Dose Date 11/04/22 11/04/22 23:24 Last Dose Time 1308 11/04/22 23:24 Vancomycin Trough 25.4 ug/mL (10.0-20.0) H* 11/04/22 23:24 - Procedures Procedures: Procedures SUPPLEMENT L INGUINAL REGION WITH SYNTH SUB, OPEN APPROACH (10/22/17)
[2022-11-05] MEDS: INSULIN LISPRO 300 UNIT/3 ML PEN SUBQ SCH ×4 (08:12→21:15)
[2022-11-05] MEDS: ENOXAPARIN 40 MG/0.4 ML SYRINGE SUBQ SCH (08:12)
[2022-11-05] MEDS: lisinopriL 5 MG TABLET PO SCH (08:12)
[2022-11-05] MEDS: SACCHAROMYCES BOULARDII 250 MG CAPSULE PO SCH ×2 (08:13→17:07)
[2022-11-05] MEDS: carvediloL 12.5 MG TABLET PO SCH (08:13)
[2022-11-05] MEDS: allopurinoL 100 MG TABLET PO SCH (08:13)
[2022-11-05] MEDS: LORATADINE 10 MG TABLET PO SCH (08:13)
[2022-11-05] MEDS: ASPIRIN CHEW 81 MG TABLET PO SCH (08:13)
[2022-11-05] MEDS: NAPROXEN 250 MG TABLET PO SCH ×2 (08:13→21:14)
--- NOTE | 2022-11-05 11:00 | PHARMACY PROGRESS NOTE ---
- Therapy Status Vancomycin regimen day #: 3 Therapy status: Trough supratherapeutic Basis for treatment: Empirical Treatment indication: cellulitis Trough goal: current 25.4, goal 10-15 Concurrent antibiotics: zosyn - PEGGY Risk Risk level for Acute Kidney Injury: Moderate Acute Kidney Injury risk factors: Piperacillin/Tozobactam, Diabetes - Monitoring and Recommendation Clinical response to treatment: I&O Previous 24 hours 11/03/22 11/04/22 11/05/22 23:59 23:59 23:59 Intake Total 1120 3805.667 720 Output Total 2 Balance 1120 3803.667 720 Lab Results 11/05/22 11/04/22 11/03/22 04:07 05:06 12:16 BUN 21 H 21 H 23 H Creatinine 1.5 H 1.3 1.3 Estimated GFR (MDRD) 46 L 54 L 54 L Vancomycin Monitoring 11/04/22 23:24 Vancomycin Trough 25.4 H* Cultures 11/03/22 12:29 Blood Blood Culture - Preliminary NO GROWTH AFTER 1 DAY 11/03/22 12:16 Blood - Right Arm Blood Culture - Preliminary NO GROWTH AFTER 1 DAY Pharmacy recommendation: Decrease dose (Frequency altered to every 24 hours from every 12 hours to achieve goal trough)
--- NOTE | 2022-11-05 13:41 | MRI Report ---
PROCEDURE: FOOT W/WO - RT INDICATIONS: eval for osteomyelitis CONTRAST: gadavist 8.2ml TECHNIQUE: Noncontrast sagittal T1 spin echo and T2 fast spin echo with fat saturation, long-axis T1 spin echo a nd T2 fast spin echo with fat saturation; short-axis T1 spin echo, proton density fast spin echo, and T2 fast spin echo with fat saturation through the forefoot. Post-contrast short axis, long axis, an d sagittal T1 spin echo with fat saturation through the forefoot. COMPARISON: Right foot radiograph dated 10/31/2022. FINDINGS: Image quality: Excellent. Bones and joints: Moderate midfoot and forefoot joint osteoarthritic changes are seen most notably in volving first MTP joint and first interphalangeal joint. Osteoarthritic changes also seen involving a rticulation between first metatarsal head and sesamoids. No gross marrow edema. No bony erosive ortiz es are seen. No metatarsal stress fractures. No area of abnormal intraosseous enhancement. Soft tissues: There is suggestion of focal ulceration involving plantar aspect of forefoot at the lev el just lateral to the first metatarsal head with surrounding fluid and edema. No peripherally enhanc ing drainable fluid collection is identified. Dorsal midfoot soft tissue edema and swelling is seen. Edema throughout visualized medial plantar foot muscles is also noted. No intramuscular fluid collect ion or enhancing mass. Extensor and flexor tendons are grossly intact. Lisfranc ligament is intact. IMPRESSION: 1. Small ulceration involving plantar aspect of medial forefoot with significant adjacent cellulitis. No discrete drainable abscess collection. 2. Osteoarthritic changes throughout midfoot and forefoot joints most notably at first MTP joint. No evidence of osteomyelitis. No fracture or dislocation. 3. Suggestion of myositis involving visualized plantar foot muscles. No intramuscular fluid collectio n or abnormal enhancement. No soft tissue mass. Reviewed by: Yayo Parks MD on 11/05/2022 1:40 PM PDT Approved by: Yayo Parks MD on 11/05/2022 1:40 PM PDT Station ID: [id number]
[2022-11-05] MEDS: HYDROcod/ACETAM 5/325 MG TABLET PO PRN (15:11)
[2022-11-05] MEDS: SODIUM CHLORIDE FLUSH 0.9% 10 ML SYRINGE IVP PRN (15:30)
[2022-11-05] MEDS: VANCOMYCIN INJ 1 GM, VANCOMYCIN INJ 250 MG in SODIUM CHLORIDE 0.9% 250 ML IV SCH (17:06)
[2022-11-05] MEDS: IBUPROFEN 600 MG TABLET PO SCH (17:36)
[2022-11-05] MEDS ORDERED: VANCOMYCIN INJ 1 GM, VANCOMYCIN INJ 250 MG in SODIUM CHLORIDE 0.9% 250 ML IV SCH (21:00)
[2022-11-05] MEDS: ATORVASTATIN 10 MG TABLET PO SCH (21:15)
[2022-11-06] MEDS ORDERED: VANCOMYCIN INJ 1 GM, VANCOMYCIN INJ 250 MG in SODIUM CHLORIDE 0.9% 250 ML IV SCH ×3
[2022-11-06 00:16] LABS: VANCOMYCIN,TROUGH 10.5 ug/mL
[2022-11-06] MEDS: SODIUM CHLORIDE FLUSH 0.9% 10 ML SYRINGE IVP SCH ×4 (00:51→23:32)
[2022-11-06] MEDS: PIPERACILLIN/TAZOBACTAM 3.375 GM in SODIUM CHLORIDE 0.9% MINIBAG 100 ML IV SCH ×4 (03:01→19:51)
[2022-11-06 05:16] LABS: BASOPHILS # (AUTO) 0.1 10^3/uL (0.0-0.1); BASOPHILS % (AUTO) 0.6 %; EOSINOPHILS # (AUTO) 0.4 10^3/uL (0.0-0.7); EOSINOPHILS % (AUTO) 4.3 %; HCT - HEMATOCRIT 34.3 % (42.0-52.0); HGB - HEMOGLOBIN 10.9 g/dL (14.0-18.0); LYMPHOCYTES # (AUTO) 1.3 10^3/uL (1.5-3.5); LYMPHOCYTES % (AUTO) 13.3 %; MEAN CORPUSCULAR HEMOGLOBIN 26.1 pg (27.0-31.0); MEAN CORPUSCULAR HGB CONC 31.8 g/dL (32.0-36.0); MEAN CORPUSCULAR VOLUME 82.3 fL (80.0-94.0); MEAN PLATELET VOLUME 9.4 fL (7.4-11.4); MONOCYTES # (AUTO) 0.8 10^3/uL (0.0-1.0); MONOCYTES % (AUTO) 7.8 %; NEUTROPHILS # (AUTO) 7.3 10^3/uL (1.5-6.6); NEUTROPHILS % (AUTO) 72.4 %; PLT - PLATELET COUNT 388 10^3/uL (130-450); RED BLOOD COUNT 4.17 10^6/uL (4.70-6.10); RED CELL DISTRIBUTION WIDTH 12.9 % (12.0-15.0); WHITE BLOOD COUNT 10.1 x10^3/uL (4.8-10.8)
[2022-11-06 05:38] LABS: CALCIUM 9.3 mg/dL (8.5-10.3); CREATININE 1.4 mg/dL (0.6-1.3); POTASSIUM 3.9 mmol/L (3.5-4.5)
[2022-11-06] MEDS: ENOXAPARIN 40 MG/0.4 ML SYRINGE SUBQ SCH (08:13)
[2022-11-06] MEDS: SACCHAROMYCES BOULARDII 250 MG CAPSULE PO SCH ×2 (08:13→16:57)
[2022-11-06] MEDS: allopurinoL 100 MG TABLET PO SCH (08:14)
[2022-11-06] MEDS: ASPIRIN CHEW 81 MG TABLET PO SCH (08:14)
[2022-11-06] MEDS: IBUPROFEN 600 MG TABLET PO SCH ×3 (08:14→16:57)
[2022-11-06] MEDS: lisinopriL 5 MG TABLET PO SCH (08:14)
[2022-11-06] MEDS: NAPROXEN 250 MG TABLET PO SCH ×2 (08:15→20:19)
[2022-11-06] MEDS: LORATADINE 10 MG TABLET PO SCH (08:15)
[2022-11-06] MEDS: carvediloL 12.5 MG TABLET PO SCH (08:15)
[2022-11-06] MEDS: INSULIN LISPRO 300 UNIT/3 ML PEN SUBQ SCH ×4 (08:16→20:22)
--- NOTE | 2022-11-06 11:58 | PROVIDER PROGRESS NOTE ---
Assessment/Plan - Problem List (1) Cellulitis Qualifiers: Qualified Code(s): L03.115 - Cellulitis of right lower limb Assessment/Plan: Patient failed Cipro and Clindamycin then Keflex plus Clinda as an out pt and had 2 ER visits. One of those ER visits had a foot x-ray that showed no evidence of bone involvement (all labs and imaging reviewed) There were no wound cultures, since nothing is draining. His blood culture are neg to date. He has been kept on empiric IV Zosyn and Vanco. Foot MRI was done to look for osteomyelitis. It showed no osteomyelitis present, there are osteoarthritic changes of the midfoot and forefoot especially MTP joint, small ulceration on the plantar aspect with cellulitis, also myositis of the plantar foot muscles without fluid collection. Yesteray, 11/05 his foot was more swollen and toes were less mobile again and pain increased. Today the swelling has decreased, the redness has substantially shrunken and is mostly confined to the first MTP. Today I spoke to Dr. Guzmán (ID at [facility]), and without discussing the specific patient, I asked about antibiotic choices after Zosyn and Vanco have helped, but for somebody that has no pos cultures to tailor antibiotics based on. She recommended we use Augmentin 875 BID and Doxycycline 100 BID. Plan: After the noon doses of IV antibiotics, I will stop Zosyn and Vanco and begin o ral Augmentin twice daily and oral Doxycycline twice daily. Assess if he has any worsening by tomorrow. Anticipate discharge tomorrow Cont leg elevation and cont pain meds and scheduled NSAID I updated the at bedside today regarding the plan Qualifiers: Site of cellulitis: extremity Site of cellulitis of extremity: lower extremity Laterality: right Qualified Code(s): L03.115 - Cellulitis of right lower limb (2) Puncture wound of plantar aspect of foot Conclusion/Plan: As per history. at bedside reported that on the day he had the puncture he went to a [facility] and got topical iodine as well as a tetanus shot. Therefore he is up-to-date on his tetanus status. Plan: As in #1 PT has advised he can walk on his heel, using a cane for balance and he could even do stairs with that. Anticipate discharge tomorrow Qualifiers: Encounter type: initial encounter Laterality: right Qualified Code(s): S91.331A - Puncture wound without foreign body, right foot, initial encounter (3) Uncontrolled diabetes mellitus Conclusion/Plan: Serum glucose was 359 on presentation (all labs reviewed). He admitted he was not taking any meds for several days because he felt bad. Also glu very elevated due to the active infection. His A1c came back at 8.2 indicating suboptimal glu control. Patient admitted to me that even before this infection, he never checks his serum glucose. Today he revealed he has not been taking Ozempic or Farxiga for several weeks due to cost. But he has been on 2 medicines that he bought on line, for decreasing sugar and he is taking these for a month (Glucose Freeze and MD something). These look like natropatic herbs Plan: Cont a diabetic diet, sliding scale insulin coverage, fingerstick checks and hypoglycemia protocol Today I will resume his glipizide Diabetic consult from [facility] (4) HTN (hypertension) Conclusion/Plan: As per history. Plan: Cont his usual BP meds of Carvedilol and Lisinopril, but not on the HCTZ yest, a s he needed iv hydration (5) CKD Conclusion/Plan: All labs were reviewed. He runs creatinines of 1.3-1.5 Plan: Avoid nephrotoxins Follow BMP daily - Current Meds Current Meds: Current Medications Generic Name Dose Route Start Last Admin Trade Name Freq PRN Reason Stop Dose Admin Acetaminophen 650 mg 11/03/22 12:44 11/03/22 16:59 Acetaminophen 325 Mg Tablet PO 650 mg Q4HR PRN Administration Pain 1 to 4, or Fever Hydrocodone Bitart/Acetaminophen 1 tab 11/03/22 12:49 11/05/22 15:11 Hydrocod/Acetam 5/325 Mg Tablet PO 1 tab Q4HR PRN Administration Moderate Pain (Level 4-6) Allopurinol 100 mg 11/04/22 09:00 11/06/22 08:14 Allopurinol 100 Mg Tablet PO 100 mg DAILY TAWANNA Administration Aspirin 81 mg 11/04/22 09:00 11/06/22 08:14 Aspirin Chew 81 Mg Tablet PO 81 mg DAILY TAWANNA Administration Atorvastatin Calcium 40 mg 11/03/22 21:00 11/05/22 21:15 Atorvastatin 10 Mg Tablet PO 40 mg QPM TAWANNA Administration Carvedilol 12.5 mg 11/04/22 09:00 11/06/22 08:15 Carvedilol 12.5 Mg Tablet PO 12.5 mg DAILY TAWANNA Administration Enoxaparin Sodium 40 mg 11/04/22 09:00 11/06/22 08:13 Enoxaparin 40 Mg/0.4 Ml Syringe SUBQ 40 mg DAILY TAWANNA Administration Piperacillin Sod/Tazobactam 100 mls @ 200 mls/hr 11/03/22 18:00 11/06/22 11:06 Sod 3.375 gm/ Sodium Chloride IV Infused Q6H [facility] Infusion Vancomycin HCl 1 gm/ 250 mls @ 166.667 mls/hr 11/06/22 00:00 11/06/22 02:30 Vancomycin HCl 250 mg/ Sodium IV Infused Chloride Q24H [facility] Infusion Ibuprofen 600 mg 11/05/22 17:07 11/06/22 08:14 Ibuprofen 600 Mg Tablet PO 600 mg TIDWM TAWANNA Administration Insulin Human Lispro 1 - 9 unit 11/04/22 17:13 11/06/22 08:16 Insulin Lispro 300 Unit/3 Ml Pen SUBQ 1 unit 0800,1200,1700,2100 TAWANNA Administration Protocol Lisinopril 10 mg 11/04/22 09:00 11/06/22 08:14 Lisinopril 5 Mg Tablet PO 10 mg DAILY TAWANNA Administration Loratadine 10 mg 11/04/22 09:00 11/06/22 08:15 Loratadine 10 Mg Tablet PO 10 mg DAILY TAWANNA Administration Naproxen 500 mg 11/03/22 21:00 11/06/22 08:15 Naproxen 250 Mg Tablet PO 500 mg BID TAWANNA Administration Saccharomyces Boulardii 250 mg 11/04/22 17:00 11/06/22 08:13 Saccharomyces Boulardii 250 Mg Capsule PO 250 mg BIDWM TAWANNA Administration Sodium Chloride 10 ml 11/03/22 12:44 11/05/22 15:30 Sodium Chloride Flush 0.9% 10 Ml Syringe IVP 10 ml PRN PRN Administration NEEDED PER PROVIDER ORDERS Sodium Chloride 10 ml 11/03/22 17:00 11/06/22 08:16 Sodium Chloride Flush 0.9% 10 Ml Syringe IVP 10 ml 0100,0900,1700 TAWANNA Administration - Lab Result Fish Bone Diagrams: 11/06/22 04:17 11/06/22 04:17 - Additional Planning My Orders: My Active Orders 11/05/22 17:07 Ibuprofen [Motrin] 600 mg PO TIDWM 11/06/22 10:54 Dietary [Nutrition Consult] [CONS] Routine 11/07/22 05:00 BMP - BASIC METABOLIC PANEL [CHEM] DAILYLAB CBC - COMP BLD CT W/AUTO DIFF [HEME] DAILYLAB 11/07/22 09:00 glipiZIDE ER [Glucotrol Xl] 10 mg PO DAILY Subjective - Subjective Patient Reports: Feeling Better (Less swelling of the top of the foot. The pointed out that the most angry appearing redness is at the first MTP) Objective Vital Signs: Vital Signs - 24 hr 11/05/22 11/05/22 11/06/22 13:50 16:00 07:53 Temperature 36.8 C 36.8 C Heart Rate [ 66 Activity] Heart Rate [ 65 67 Brachial] Respiratory 18 18 Rate Blood Pressure 161/72 H [Activity] Blood Pressure 141/96 H 155/70 H [Left Brachial artery] O2 Saturation 99 98 Oxygen O2 Source Room air I&O (Last 24 Hrs): Intake and Output Totals x24h 11/04/22 11/05/22 11/06/22 23:59 23:59 23:59 Intake Total 3805.667 3464.333 450 Output Total 2 Balance 3803.667 3464.333 450 General: Alert, Oriented x3 HEENT: Atraumatic, EOMI Neck: Supple, No JVD Neuro: Alert, Non Focal Cardiovascular: Regular rate Respiratory: No respiratory distress Abdomen: No tenderness Extremities: No clubbing, Other (Right foot redness has decreased substantially, is mostly red at the MTP joints ellyn 1st toe. Swelling decreased as well) - Results Results: Laboratory Results WBC 10.1 x10^3/uL (4.8-10.8) 11/06/22 04:17 RBC 4.17 10^6/uL (4.70-6.10) L 11/06/22 04:17 Hgb 10.9 g/dL (14.0-18.0) L 11/06/22 04:17 Hct 34.3 % (42.0-52.0) L 11/06/22 04:17 MCV 82.3 fL (80.0-94.0) 11/06/22 04:17 MCH 26.1 pg (27.0-31.0) L 11/06/22 04:17 MCHC 31.8 g/dL (32.0-36.0) L 11/06/22 04:17 RDW 12.9 % (12.0-15.0) 11/06/22 04:17 Plt Count 388 10^3/uL (130-450) 11/06/22 04:17 MPV 9.4 fL (7.4-11.4) 11/06/22 04:17 Neut # (Auto) 7.3 10^3/uL (1.5-6.6) H 11/06/22 04:17 Lymph # (Auto) 1.3 10^3/uL (1.5-3.5) L 11/06/22 04:17 [place] # (Auto) 0.8 10^3/uL (0.0-1.0) 11/06/22 04:17 Eos # (Auto) 0.4 10^3/uL (0.0-0.7) 11/06/22 04:17 Baso # (Auto) 0.1 10^3/uL (0.0-0.1) 11/06/22 04:17 Absolute Nucleated RBC 0.00 x10^3/uL 11/06/22 04:17 Nucleated RBC % 0.0 /100WBC 11/06/22 04:17 Sodium 138 mmol/L (135-145) 11/06/22 04:17 Potassium 3.9 mmol/L (3.5-4.5) 11/06/22 04:17 Chloride 103 mmol/L (101-111) 11/06/22 04:17 Carbon Dioxide 28 mmol/L (21-32) 11/06/22 04:17 Anion Gap 7.0 (6-13) 11/06/22 04:17 BUN 20 mg/dL (6-20) 11/06/22 04:17 Creatinine 1.4 mg/dL (0.6-1.3) H 11/06/22 04:17 Estimated GFR (MDRD) 50 (>89) L 11/06/22 04:17 Glucose 166 mg/dL (74-104) H 11/06/22 04:17 POC Whole Bld Glucose 245 mg/dL (70 - 100) H 11/06/22 11:49 Estimat Average Glucose 189 mg/dL (70-100) H 11/03/22 12:16 Hemoglobin A1c % 8.2 % (4.27-6.07) H 11/03/22 12:16 Lactic Acid 1.1 mmol/L (0.5-2.2) 11/03/22 12:16 Uric Acid 3.3 mg/dL (4.4-7.6) L 11/05/22 04:07 Calcium 9.3 mg/dL (8.5-10.3) 11/06/22 04:17 Phosphorus 3.4 mg/dL (2.5-5.0) 11/04/22 05:06 Magnesium 1.7 mg/dL (1.7-2.3) 11/04/22 05:06 Total Bilirubin 0.5 mg/dL (0.2-1.0) 11/03/22 12:16 AST 9 IU/L (10-42) L 11/03/22 12:16 ALT 7 IU/L (10-60) L 11/03/22 12:16 Alkaline Phosphatase 70 IU/L (42-121) 11/03/22 12:16 Total Creatine Kinase 28 IU/L (30-223) L 11/05/22 04:07 Total Protein 7.0 g/dL (6.4-8.9) 11/03/22 12:16 Albumin 3.4 g/dL (3.2-5.5) 11/03/22 12:16 Globulin 3.6 g/dL (2.1-4.2) 11/03/22 12:16 Albumin/Globulin Ratio 0.9 (1.0-2.2) L 11/03/22 12:16 Lipase 15 U/L (11-82) 11/03/22 12:16 Last Dose Date Not Reportable 11/05/22 23:51 Last Dose Time Not Reportable 11/05/22 23:51 Vancomycin Trough 10.5 ug/mL 11/05/22 23:51 - Procedures Procedures: Procedures SUPPLEMENT L INGUINAL REGION WITH SYNTH SUB, OPEN APPROACH (10/22/17)
[2022-11-06] MEDS: SODIUM CHLORIDE FLUSH 0.9% 10 ML SYRINGE IVP PRN (14:13)
[2022-11-06] MEDS: DOXYCYCLINE 100 MG TABLET PO SCH (20:19)
[2022-11-06] MEDS: AMOX/CLAV 875 MG/125 MG TABLET PO SCH (20:19)
[2022-11-06] MEDS: ATORVASTATIN 10 MG TABLET PO SCH (20:20)
[2022-11-07 06:04] LABS: BASOPHILS # (AUTO) 0.1 10^3/uL (0.0-0.1); BASOPHILS % (AUTO) 0.9 %; EOSINOPHILS # (AUTO) 0.4 10^3/uL (0.0-0.7); EOSINOPHILS % (AUTO) 4.3 %; HGB - HEMOGLOBIN 11.3 g/dL (14.0-18.0); LYMPHOCYTES # (AUTO) 1.5 10^3/uL (1.5-3.5); LYMPHOCYTES % (AUTO) 16.6 %; MEAN CORPUSCULAR HEMOGLOBIN 26.6 pg (27.0-31.0); MEAN CORPUSCULAR HGB CONC 32.3 g/dL (32.0-36.0); MEAN CORPUSCULAR VOLUME 82.4 fL (80.0-94.0); MONOCYTES # (AUTO) 0.7 10^3/uL (0.0-1.0); MONOCYTES % (AUTO) 7.4 %; NEUTROPHILS # (AUTO) 6.3 10^3/uL (1.5-6.6); NEUTROPHILS % (AUTO) 68.4 %; PLT - PLATELET COUNT 379 10^3/uL (130-450); RED BLOOD COUNT 4.25 10^6/uL (4.70-6.10); RED CELL DISTRIBUTION WIDTH 13.2 % (12.0-15.0); WHITE BLOOD COUNT 9.2 x10^3/uL (4.8-10.8)
[2022-11-07 06:16] LABS: CALCIUM 9.4 mg/dL (8.5-10.3); CREATININE 1.4 mg/dL (0.6-1.3); POTASSIUM 4.2 mmol/L (3.5-4.5)
[2022-11-07] MEDS: lisinopriL 5 MG TABLET PO SCH (08:59)
[2022-11-07] MEDS: ASPIRIN CHEW 81 MG TABLET PO SCH (08:59)
[2022-11-07] MEDS: NAPROXEN 250 MG TABLET PO SCH (08:59)
[2022-11-07] MEDS: allopurinoL 100 MG TABLET PO SCH (08:59)
[2022-11-07] MEDS: AMOX/CLAV 875 MG/125 MG TABLET PO SCH (09:00)
[2022-11-07] MEDS: IBUPROFEN 600 MG TABLET PO SCH ×2 (09:00→11:39)
[2022-11-07] MEDS: carvediloL 12.5 MG TABLET PO SCH (09:00)
[2022-11-07] MEDS: SACCHAROMYCES BOULARDII 250 MG CAPSULE PO SCH (09:00)
[2022-11-07] MEDS: INSULIN LISPRO 300 UNIT/3 ML PEN SUBQ SCH ×2 (09:00→11:40)
[2022-11-07] MEDS: LORATADINE 10 MG TABLET PO SCH (09:00)
[2022-11-07] MEDS: DOXYCYCLINE 100 MG TABLET PO SCH (09:00)
[2022-11-07] MEDS: ENOXAPARIN 40 MG/0.4 ML SYRINGE SUBQ SCH (09:01)
[2022-11-07] MEDS: SODIUM CHLORIDE FLUSH 0.9% 10 ML SYRINGE IVP SCH (09:02)
--- NOTE | 2022-11-07 13:00 | Discharge Plan ---
Discharge Plan Problem Reviewed?: Yes Disposition: Home, Self Care Condition: Stable Prescriptions: Amox/Clav 875/125 [Augmentin 875/125 Tab] 1 tab PO BID #20 tab Saccharomyces Boulardii [Florastor] 250 mg PO DAILY #10 cap Atorvastatin [Lipitor] 40 mg PO QPM #30 tab Metformin HCl 1,000 mg PO BID #60 tablet Doxycycline [Vibramycin] 100 mg PO BID #20 tab Diet: Diabetic Activity Restrictions: Wt Bearing as Tolerated Shower Restrictions: No Driving Restrictions: Yes Assistance Devices: Cane Weight Bearing: Partial Weight Health Concerns: You were hospitalized to treat cellulitis, a soft tissue infection of your foot, which you got after stepping on a nail. You are being discharged home to take 10 more days of oral antibiotics plus probiotics have been prescribed. All new prescriptions were electronically sent to your [facility] pharmacy in [place]. You may resume all your other usual pre-hospital medications. But please note, your statin medication should be taken at night, not in the morning. Your metformin should be taken twice a day, not once a day, so I prescribed a new s upply. Do not resume the previous antibiotics that you got before this hospitalization. Plan of Treatment: As above. Care Goals: Improvement in symptoms and stabilization are the goals. Assessment: The patient understands and is agreeable with the plan. Additional Instructions or Follow Up instructions: If you have new or worsening symptoms, call your PCP for advice or come to the ER. No Smoking: If you smoke, Please STOP! Call for help.
--- NOTE | 2022-11-07 13:08 | DISCHARGE SUMMARY ---
Discharge Summary Admit Date: 11/03/22 Discharge Date: 11/07/22 Discharging Provider: Yolanda Tejeda MD Primary Care Provider: Jeaneth Myrick NP Condition at Discharge: Stable Discharge Disposition: 01 Home, Self Care - HPI History of Present Illness: This is a 72-year-old male with history of diabetes on oral agents, admits he never checkss his glu, and has a history of hypertension. The patient stepped on a nail, ten days ago, that went through his shoe of the right foot. He washed the foot. He noticed pain and redness on the dorsum of the foot 5 days ago and came to the ER. He was discharged on oral Cipro and Clindamycin. He returned back to the ER 2 days ago with even further redness and pain, a foot x-ray was done that showed no trauma or abnormality, and his medications were changed to Keflex plus Clindamycin. He now comes back to the ER for the third time complaining of redness of his entire R foot and reports he is getting chills. Today's ER evaluation shows that he has cellulitis of the R foot, with redness, pain and swelling of mostly the dorsum of the foot, slightly red on the plantar side as well and a puncture wound is evident. His WBC is 12.9 and serum glu is 359. In the ER, he had blood cultures taken and then he received empiric Vanco and Zosyn. The ED provider spoke to me about this patient. He will be admitted for managing cellulitis that has failed outpatient antibiotics in a patient who has uncontrolled diabetes. I spoke to him about his CODE BLUE wishes and he wants to be a full code. - HOSPITAL COURSE Hospital Course: (1) Cellulitis - Qualified Code(s): L03.115 - Cellulitis of right lower limb Patient failed oral Cipro and Clindamycin then Keflex plus Clinda as an out pt and had 2 ER visits. One of those ER visits had a foot x-ray that showed no evidence of bone involvement. He was put on empiric IV Zosyn and Vanco. His bloo d culture were neg to date and there was no wound culture, since nothing was draining. A foot MRI showed no osteomyelitis.There were osteoarthritic changes of the midfoot and forefoot especially MTP joint, small ulceration on the plantar aspect with cellulitis, also myositis of the plantar foot muscles without fluid collection. The swelling and redness slowly decreased. I spoke to Dr. Guzmán (ID at [facility]), about antibiotic choices after Juliana and Dono for somebody that has no pos cultures to tailor antibiotics. She recommended Augmentin 875 BID and Doxycycline 100 BID, which were ordered. These were prescribed to be taken for 10 more days after discharge. Continued leg elevation and prn pain meds and scheduled NSAIDs for a week were also advised. (2) Puncture wound of plantar aspect of foot The day he had the puncture, he went to a [facility] and got topical iodine as well as a tetanus shot. He was seen by PT and OT and could manage walking on his heel, using a cane for balance and he could even do stairs. (3) Uncontrolled diabetes mellitus Serum glucose was 359 on presentation. He admitted he was not taking any meds for several days because he "felt bad", and glu was elevated due to the active infection. His A1c came back at 8.2 indicating suboptimal glu control. Patient admitted to me that even before this infection, he never checks his serum glucose. He eventually also revealed he has not been taking Ozempic or Farxiga for several weeks due to high cost, but was taking 2 medicines that he bought on line (natropathic herbs). He was on a diabetic diet, sliding scale insulin coverage, for fingerstick check results here and he and his were seen by the [facility]. (4) HTN (hypertension) We continued his usual BP meds of Carvedilol and Lisinopril, but not on the HCTZ, since he needed iv hydration (5) CKD He runs creatinines of 1.3-1.5 - ALLERGIES Allergies/Adverse Reactions: Allergies Allergy/AdvReac Type Severity Reaction Status Date / Time clopidogrel Allergy Rash Verified 11/03/22 11:34 - MEDICATIONS Home Medications: Ambulatory Orders Medication Instructions Recorded Confirmed Aspirin 81 mg PO DAILY 07/24/16 11/03/22 Loratadine [Allergy Relief] 10 mg PO DAILY 07/24/16 11/03/22 allopurinoL [Allopurinol] 100 mg PO DAILY 07/24/16 11/03/22 carvediloL [Coreg] 12.5 mg PO DAILY 07/24/16 11/03/22 hydroCHLOROthiazide 25 mg PO DAILY 07/24/16 11/03/22 [Hydrochlorothiazide] lisinopriL [Lisinopril] 10 mg PO DAILY 07/24/16 11/03/22 Glipizide [Glipizide Xl] 10 mg PO DAILY 11/03/22 11/03/22 Acetaminophen [Tylenol] 650 mg PO Q4HR PRN tab 11/07/22 Amox/Clav 875/125 [Augmentin 1 tab PO BID #20 tab 11/07/22 875/125 Tab] Atorvastatin [Lipitor] 40 mg PO QPM #30 tab 11/07/22 Doxycycline [Vibramycin] 100 mg PO BID #20 tab 11/07/22 Metformin HCl 1,000 mg PO BID #60 tablet 11/07/22 Naproxen [Naprosyn] 500 mg PO BID tab 11/07/22 Saccharomyces Boulardii [Florastor] 250 mg PO DAILY #10 cap 11/07/22 - PHYSICAL EXAM AT DISCHARGE General Appearance: positive: No acute distress, Alert Eyes Bilateral: positive: Normal inspection, EOMI ENT: positive: ENT inspection nml, No signs of dehydration Neck: positive: Nml inspection, No JVD Respiratory: positive: No respiratory distress, Breath sounds nml Cardiovascular: positive: Regular rate & rhythm, No murmur Abdomen: positive: Non-tender, Nml bowel sounds, No distention Skin: positive: Warm, Dry Extremities: positive: No pedal edema, Other (R foot swelling and slt redness of 1st MTP joint, mild swelling of distal forefoot w/out redness, puncture wound dry on plantar aspect of R foot.) - LABS Result Diagrams: 11/07/22 05:42 11/07/22 05:42 - DIAGNOSTIC IMAGING Diagnostic Imaging Results: Final report reviewed - FOLLOW UP Follow Up: See PCP in 1-2 weeks for a hospital F/U visit. - TIME SPENT Time Spent in Discharge (Minutes): 40
[2022-11-07 13:22] VITALS: BP 166/76; O2SAT 99
== END 2022-11-07 13:35 | disposition home or self-care (01) | DRG 603 ==
LOC: ED 11:26 → MS2 12:44
PROVIDERS: ADMIT Internal Medicine; ATTEND Internal Medicine
DX: L03.115 Cellulitis of right lower limb (principal); S91.331A Puncture wound without foreign body, right foot, initial encounter; W45.0XXA Nail entering through skin, initial encounter; I10 Essential (primary) hypertension; E11.9 Type 2 diabetes mellitus without complications; T38.3X6A Underdosing of insulin and oral hypoglycemic [antidiabetic] drugs, initial encounter; E11.22 Type 2 diabetes mellitus with diabetic chronic kidney disease; I12.9 Hypertensive chronic kidney disease with stage 1 through stage 4 chronic kidney disease, or unspecified chronic kidney disease; N18.9 Chronic kidney disease, unspecified; E78.00 Pure hypercholesterolemia, unspecified; I25.10 Atherosclerotic heart disease of native coronary artery without angina pectoris; K21.9 Gastro-esophageal reflux disease without esophagitis; Z79.82 Long term (current) use of aspirin; Z79.84 Long term (current) use of oral hypoglycemic drugs; Z79.899 Other long term (current) drug therapy; Z91.128 Patient's intentional underdosing of medication regimen for other reason; Z91.199 Patient's noncompliance with other medical treatment and regimen due to unspecified reason
CPT/HCPCS: 36415; 73720; 80048; 80053; 80202; 82550; 83036; 83605; 83690; 83735; 84100; 84550; 85025; 87040; 96374; 97116; 97161; 99284; 99285; A9270; A9585; J1650; J3370

== ENCOUNTER 2022-12-19 08:00 | Outpatient (CLI) | payer MEDICARE, OTHER ==
[2022-12-19 18:29] LABS: BASOPHILS # (AUTO) 0.1 10^3/uL (0.0-0.1); BASOPHILS % (AUTO) 1.2 %; EOSINOPHILS # (AUTO) 0.1 10^3/uL (0.0-0.7); EOSINOPHILS % (AUTO) 2.1 %; HGB - HEMOGLOBIN 14.1 g/dL (14.0-18.0); LYMPHOCYTES # (AUTO) 1.9 10^3/uL (1.5-3.5); LYMPHOCYTES % (AUTO) 28.8 %; MEAN CORPUSCULAR HEMOGLOBIN 26.6 pg (27.0-31.0); MEAN CORPUSCULAR HGB CONC 32.8 g/dL (32.0-36.0); MEAN CORPUSCULAR VOLUME 81.1 fL (80.0-94.0); MEAN PLATELET VOLUME 10.6 fL (7.4-11.4); MONOCYTES # (AUTO) 0.6 10^3/uL (0.0-1.0); MONOCYTES % (AUTO) 8.5 %; NEUTROPHILS % (AUTO) 59.3 %; PLT - PLATELET COUNT 231 10^3/uL (130-450); RED CELL DISTRIBUTION WIDTH 14.6 % (12.0-15.0); WHITE BLOOD COUNT 6.7 x10^3/uL (4.8-10.8)
[2022-12-19 18:43] LABS: BUN - BLOOD UREA NITROGEN 27 mg/dL (6-20); CALCIUM 10.1 mg/dL (8.5-10.3); CARBON DIOXIDE - CO2 29 mmol/L (21-32); CHLORIDE 97 mmol/L (101-111); CREATININE 1.7 mg/dL (0.6-1.3); CRP - C-REACTIVE PROTEIN < 0.5 mg/dL (<0.5); GFR - MDRD 40 (>89); GLUCOSE 482 mg/dL (74-104); SODIUM 134 mmol/L (135-145)
== END 2022-12-19 23:59 | disposition home or self-care (01) ==
LOC: LAB.R 08:00
PROVIDERS: ATTEND Internal Medicine Infectious Disease
DX: L03.115 Cellulitis of right lower limb (principal)
CPT/HCPCS: 36415; 80048; 85025; 85651; 86140

== ENCOUNTER 2023-01-16 09:49 | Outpatient (CLI) | payer MEDICARE, OTHER ==
[2023-01-16 14:57] LABS: ESTIMATED AVERAGE GLUCOSE 315 mg/dL (70-100); HEMOGLOBIN A1c% 12.6 % (4.27-6.07)
== END 2023-01-16 09:50 | disposition home or self-care (01) ==
LOC: LAB.S 09:49
PROVIDERS: ATTEND Nurse Practitioner
DX: E11.65 Type 2 diabetes mellitus with hyperglycemia (principal)
CPT/HCPCS: 36415; 83036

== ENCOUNTER 2023-04-16 11:40 | Emergency (ER) | payer MEDICARE, OTHER ==
[2023-04-16 12:35] VITALS: BP 137/79; O2SAT 100
--- NOTE | 2023-04-16 12:49 | XRAY Report ---
PROCEDURE: Foot 3+V RT INDICATIONS: Trauma TECHNIQUE: 3 views of the foot were acquired. COMPARISON: 10/31/2022 FINDINGS: Bones: No fractures or dislocations. Possible lucent lesion along the distal aspect of the fourth pr oximal phalanx. Osteoarthritic changes are redemonstrated.. Soft tissues: No suspicious soft tissue calcifications or masses. IMPRESSION: No acute osseous abnormalities. Possible lucent lesion along the distal aspect of the fourth proximal phalanx which was not seen on prior radiograph 10/31/2022. Recommend follow-up radiograph to assess st ability. Reviewed by: Bc Sanabria MD on 04/16/2023 12:48 PM PST Approved by: Bc Sanabria MD on 04/16/2023 12:48 PM PST Station ID: [id number]
--- NOTE | 2023-04-16 14:32 | ED Physician Documentation ---
PD HPI LOWER EXT INJURY - Stated complaint Stated Complaint: RT FOOT SWELLING,PX - Chief complaint Chief Complaint: Ext Problem - History obtained from History obtained from: Patient - Additional information Additional information: The pt comes to the ED with CC of R 4th toe swelling and pain for about 6 months since a puncture wound he had in October. He states he was on antibiotics for about a month after his foot got infected. His toe has been slightly red and puffy ever since. He has not had any worsening of sx over that time. No increase in pain or swelling, no migration of either, and no fever. He has a callus on the lateral side of his toe that is not draining, but he would like it checked. He has not seen his surgeon in a while, and was declared free of infection. No h/o gout. He is a diabetic. PD PAST MEDICAL HISTORY - Past Medical History Past Medical History: Yes Cardiovascular: Hypertension, High cholesterol, Coronary artery disease Respiratory: None Neuro: None Endocrine/Autoimmune: Type 2 diabetes GI: GERD : None HEENT: None Psych: None Musculoskeletal: Rheumatoid arthritis Derm: None - Past Surgical History Past Surgical History: Yes General: Cholecystectomy Cardiovascular: Coronary stent HEENT: Rhinoplasty - Present Medications Home Medications: Ambulatory Orders Medication Instructions Recorded Confirmed Aspirin 81 mg PO DAILY 07/24/16 11/03/22 Loratadine [Allergy Relief] 10 mg PO DAILY 07/24/16 11/03/22 allopurinoL [Allopurinol] 100 mg PO DAILY 07/24/16 11/03/22 carvediloL [Coreg] 12.5 mg PO DAILY 07/24/16 11/03/22 hydroCHLOROthiazide 25 mg PO DAILY 07/24/16 11/03/22 [Hydrochlorothiazide] lisinopriL [Lisinopril] 10 mg PO DAILY 07/24/16 11/03/22 Glipizide [Glipizide Xl] 10 mg PO DAILY 11/03/22 11/03/22 Acetaminophen [Tylenol] 650 mg PO Q4HR PRN tab 11/07/22 Amox/Clav 875/125 [Augmentin 1 tab PO BID #20 tab 11/07/22 875/125 Tab] Atorvastatin [Lipitor] 40 mg PO QPM #30 tab 11/07/22 Doxycycline [Vibramycin] 100 mg PO BID #20 tab 11/07/22 Metformin HCl 1,000 mg PO BID #60 tablet 11/07/22 Naproxen [Naprosyn] 500 mg PO BID tab 11/07/22 Saccharomyces Boulardii [Florastor] 250 mg PO DAILY #10 cap 11/07/22 - Allergies Allergies/Adverse Reactions: Allergies Allergy/AdvReac Type Severity Reaction Status Date / Time clopidogrel Allergy Rash Verified 04/16/23 12:24 - Social History Does the pt smoke?: No Smoking Status: Never smoker Does the pt drink ETOH?: Yes Does the pt have substance abuse?: No - Immunizations Immunizations are current?: Yes - POLST Patient has POLST: No PD ED PE NORMAL - Vitals Vital signs reviewed: Yes - General General: Alert and oriented X 3, No acute distress, Well developed/nourished - HEENT HEENT: Atraumatic, Moist mucous membranes - Neck Neck: Supple, no meningeal sign - Cardiac Cardiac: Strong equal pulses - Respiratory Respiratory: No respiratory distress - Derm Derm: Warm and dry, No rash, Other (R 4th toe slightly pink compared to other toes. Slight edema/enlargement. No spread onto foot or streaking. Mild pain with ROM and mild TTP. Dry callus on lateral side of toe with indentation. No drainage.) - Extremities Extremities: No deformity - Neuro Neuro: Alert and oriented X 3 - Psych Psych: Normal mood, Normal affect Results - Vitals Vitals: Oxygen O2 Source Room air - Rads (name of study) R foot XR series Relevant Findings:: Final report received, See rad report (No fx. 4th toe possible lucent lesion, new since 11/17. Rec repeat XR to assess stability, time interval unspecified.) PD Medical Decision Making - ED course Complexity details: reviewed old records, reviewed results, re-evaluated patient, considered differential, d/w patient ED course: Review of pt's records reveals that he was seen a few times over a period of about a week in October, and ultimately, after failing outpatient abx, was admitted. He was treated with IV abx, had negative lactate and cultures, and MRI showed no osteomyelitis. ID was consulted and recommended 10 more days of Augmentin and doxy as an outpatient. This is the last treatment that the pt had. I d/w pt that from what he is telling me, it doesn't sound like he has had a worsening of sx, and I don't find extension of findings beyond the 4th toe. The main argument for abx would be that he is diabetic and high-risk for infection, but given that I have asked the pt repeatedly about new sx or change in existing sx in recent weeks, and he has repeatedly denied this, it is hard to justify concern for acute infection. Furthermore, given that MRI demonstrated no osteomyelitis in October, the issue of redevelopment of pre-existing osteo is not an issue. I have d/w pt that he would likely benefit from seeing a maintenance engineer. We have discussed the "possible" lucency on his XR, which is of unknown significance given the lack of specificity on radiologist's report. The pt would like to follow up with podiatry, and they can discuss repeat MR if maintenance engineer feels there is further concern. We have discussed the issue of antibiotics, and pt at this point would like to hold off, which I think is reasonable, given the above discussion. We have discussed symptomatic management at home, the need for follow-up, and the usual indications for return under these circumstances. Departure - Departure Disposition: 01 Home, Self Care Clinical Impression: Toe pain, right Condition: Stable Comments: Your symptoms are quite longstanding and unfortunately, not really consistent with any of the things that would usually cause redness, pain, and swelling in the toe. These would include infection, which usually progressively worsens once it becomes apparent, over the course of hours to days. The fact that this has been fairly stable for months on and makes it less likely, despite the fact that we may consider infection if the symptoms were more acute. Gout would be another possibility, even with you being on a medication to prevent flareups. However, once again, the symptoms usually flareup acutely, last for some weeks, and then down on their own. We would not expect your symptoms to drag on for months. Since you have not had any trauma recently, discoloration and swelling from an injury would also be unlikely. Your x-ray shows a slight irregularity in the bone next to the area where your athlete's foot lesion is, but this is nonspecific. There is no specific acute management at this time, b ut you do need to see the methods specialist for follow-up x-ray. Most certainly, if you begin to develop spreading redness and pain beyond the area where it has chronically been, you should get seen without delay, as you are at risk for bad foot infections with your diabetes and your recent osteomyelitis history elsewhere in your foot. Please follow-up as soon as possible with the methods specialist. You may bear weight as tolerated and should continue to wear flexible shoes that do not put too much pressure on the toe. Forms: PCP List Discharge Date/Time: 04/16/23 14:49
== END 2023-04-16 14:49 | disposition home or self-care (01) ==
LOC: ED 11:40
DX: M79.674 Pain in right toe(s) (principal); I10 Essential (primary) hypertension; E78.00 Pure hypercholesterolemia, unspecified; I25.10 Atherosclerotic heart disease of native coronary artery without angina pectoris; E11.9 Type 2 diabetes mellitus without complications; M06.9 Rheumatoid arthritis, unspecified; Z79.82 Long term (current) use of aspirin; Z79.4 Long term (current) use of insulin; Z79.899 Other long term (current) drug therapy
CPT/HCPCS: 99283

== ENCOUNTER 2023-06-04 09:33 | Outpatient (CLI) | payer MEDICARE, OTHER ==
[2023-06-04 09:44] LABS: BASOPHILS # (AUTO) 0.1 10^3/uL (0.0-0.1); BASOPHILS % (AUTO) 1.4 %; EOSINOPHILS # (AUTO) 0.4 10^3/uL (0.0-0.7); EOSINOPHILS % (AUTO) 5.3 %; HCT - HEMATOCRIT 40.6 % (42.0-52.0); HGB - HEMOGLOBIN 12.8 g/dL (14.0-18.0); LYMPHOCYTES # (AUTO) 1.8 10^3/uL (1.5-3.5); LYMPHOCYTES % (AUTO) 25.7 %; MEAN CORPUSCULAR HEMOGLOBIN 26.3 pg (27.0-31.0); MEAN CORPUSCULAR HGB CONC 31.5 g/dL (32.0-36.0); MEAN CORPUSCULAR VOLUME 83.4 fL (80.0-94.0); MEAN PLATELET VOLUME 10.2 fL (7.4-11.4); MONOCYTES # (AUTO) 0.8 10^3/uL (0.0-1.0); MONOCYTES % (AUTO) 11.9 %; NEUTROPHILS # (AUTO) 3.9 10^3/uL (1.5-6.6); NEUTROPHILS % (AUTO) 55.4 %; PLT - PLATELET COUNT 271 10^3/uL (130-450); RED BLOOD COUNT 4.87 10^6/uL (4.70-6.10); RED CELL DISTRIBUTION WIDTH 14.6 % (12.0-15.0)
[2023-06-04 10:12] LABS: BUN - BLOOD UREA NITROGEN 26 mg/dL (6-20); CALCIUM 10.7 mg/dL (8.5-10.3); CARBON DIOXIDE - CO2 31 mmol/L (21-32); CHLORIDE 100 mmol/L (101-111); CREATININE 1.4 mg/dL (0.6-1.3); CRP - C-REACTIVE PROTEIN < 0.5 mg/dL (<0.5); GFR - MDRD 50 (>89); GLUCOSE 109 mg/dL (74-104); POTASSIUM 4.2 mmol/L (3.5-4.5); SODIUM 137 mmol/L (135-145)
== END 2023-06-04 09:34 | disposition home or self-care (01) ==
LOC: LAB.R 09:33
PROVIDERS: ATTEND Internal Medicine
DX: L03.115 Cellulitis of right lower limb (principal); E11.9 Type 2 diabetes mellitus without complications
CPT/HCPCS: 80048; 80202; 85025; 85651; 86140

== ENCOUNTER 2023-08-08 10:17 | Outpatient (CLI) | payer MEDICARE, OTHER ==
[2023-08-08 14:55] LABS: BUN - BLOOD UREA NITROGEN 31 mg/dL (6-20); CALCIUM 10.2 mg/dL (8.5-10.3); CARBON DIOXIDE - CO2 31 mmol/L (21-32); CHLORIDE 101 mmol/L (101-111); CHOL/HDL RATIO 3.2 (<5.0); CHOLESTEROL 106 mg/dL; CREATININE 1.4 mg/dL (0.6-1.3); GFR - MDRD 50 (>89); GLUCOSE 99 mg/dL (74-104); HDL CHOLESTEROL 33 mg/dL; LDL CHOLESTEROL,CALCULATED 55 mg/dL; LDL/HDL RATIO 1.7 (<3.6); POTASSIUM 3.6 mmol/L (3.5-4.5); SODIUM 138 mmol/L (135-145); TRIGLYCERIDES 89 mg/dL (48-352); URIC ACID 6.8 mg/dL (4.4-7.6); VLDL CHOLESTEROL 18 mg/dL
[2023-08-08 20:45] LABS: CREATININE,URINE 100.1 mg/dL; MICROALBUMIN,URINE 1.7 mg/dL
[2023-08-08 21:27] LABS: ESTIMATED AVERAGE GLUCOSE 169 mg/dL (70-100); HEMOGLOBIN A1c% 7.5 % (4.27-6.07)
[2023-08-10 01:10] LABS: HCV AB Non Reactive (Non Reactive)
== END 2023-08-08 10:18 | disposition home or self-care (01) ==
LOC: LAB.S 10:17
PROVIDERS: ATTEND Internal Medicine
DX: E11.21 Type 2 diabetes mellitus with diabetic nephropathy (principal); M10.9 Gout, unspecified; E78.5 Hyperlipidemia, unspecified; Z11.59 Encounter for screening for other viral diseases
CPT/HCPCS: 36415; 80048; 80061; 82043; 82570; 83036; 83721; 84550; 86803

== ENCOUNTER 2023-08-09 08:00 | Outpatient (CLI) | payer MEDICARE, OTHER ==
[2023-08-09 16:29] LABS: FECAL OCCULT BLOOD (FIT) NEGATIVE (NEGATIVE)
== END 2023-08-09 23:59 | disposition home or self-care (01) ==
LOC: LAB.F 08:00
PROVIDERS: ATTEND Internal Medicine
DX: Z12.11 Encounter for screening for malignant neoplasm of colon (principal)
CPT/HCPCS: 82274